=== PATIENT | female | born 1960 | race Caucasian/White ===

== ENCOUNTER 2023-06-01 17:00 | Outpatient (RCR) | payer OTHER, SELFPAY | END 2023-06-30 14:45 | disposition home or self-care (01) | LOC: HO.PT 17:00 | PROVIDERS: PCP Nurse Practitioner Adult Health; Visit Provider Student in an Organized Health Care Education/Training Program | DX: M54.50 Low back pain, unspecified (principal); G89.29 Other chronic pain | CPT/HCPCS: 97110; 97140; 97161; 97530 ==

== ENCOUNTER 2024-03-10 14:39 | Outpatient (AMB) | payer OTHER, SELFPAY ==
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
[2024-03-10 14:42] VITALS: PULSE 70; BMI 26.9
== END 2024-03-10 15:18 | disposition home or self-care (01) ==
PROVIDERS: PCP Nurse Practitioner Adult Health; Referring Provider Nurse Practitioner Adult Health; Visit Provider Registered Nurse Emergency
DX: M50.30 Other cervical disc degeneration, unspecified cervical region (principal); M47.816 Spondylosis without myelopathy or radiculopathy, lumbar region; M54.50 Low back pain, unspecified
CPT/HCPCS: 99204

== ENCOUNTER → 2024-03-10 14:39 | Outpatient (BNVA) | payer OTHER, SELFPAY | PROVIDERS: PCP Nurse Practitioner Adult Health; Referring Provider Nurse Practitioner Adult Health; Visit Provider Registered Nurse Emergency ==

== ENCOUNTER 2024-05-04 15:29 | Outpatient (REF) | payer OTHER, SELFPAY ==
--- NOTE | ~2024-05-04 | XR_ITS ---
RADIOGRAPH LUMBAR SPINE CLINICAL HISTORY: Back pain. COMPARISON: No relevant prior studies are available for comparison. TECHNIQUE: AP, lateral and oblique views were obtained. FINDINGS: Significant left apical lumbar scoliosis limiting evaluation of fractures by radiograph. No discrete severe compression deformity. No significant brianne or retrolisthesis. Grade 1 retrolisthesis of L2 on L3, possibly degenerative in nature. Severe multilevel intervertebral disc height loss and facet arthropathy leading to various degrees of neural foraminal osseous encroachment. No significant paraspinal soft tissue abnormality. XR/XR lumbar spine 4V min IMPRESSION: 1. Significant left apical lumbar scoliosis limiting evaluation of fractures. 2. Grade 1 retrolisthesis of L2 on L3, possibly degenerative in nature. 3. Severe lumbar spondylosis. In view of the degree of severe scoliosis, limiting the evaluation of the spine by radiograph, further evaluation with CT R MRI lumbar spine without IV contrast is recommended as clinically warranted. Electronically signed by: Deysi Hernandez MD 05/04/2024 05:00 PM EDT
== END 2024-05-04 15:30 | disposition home or self-care (01) ==
LOC: HO.XRAY 15:29
PROVIDERS: PCP Nurse Practitioner Adult Health; Visit Provider Registered Nurse Emergency
DX: M47.816 Spondylosis without myelopathy or radiculopathy, lumbar region (principal); M50.30 Other cervical disc degeneration, unspecified cervical region
CPT/HCPCS: 72110

== ENCOUNTER 2024-05-09 15:37 | Outpatient (AMB) | payer OTHER, SELFPAY ==
[2024-05-09 15:41] VITALS: BP 141/76; PULSE 66; O2SAT 98; BMI 26.4
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
== END 2024-05-09 15:56 | disposition home or self-care (01) ==
PROVIDERS: PCP Nurse Practitioner Adult Health; Visit Provider Registered Nurse Emergency
DX: M50.30 Other cervical disc degeneration, unspecified cervical region (principal); M47.816 Spondylosis without myelopathy or radiculopathy, lumbar region; M54.50 Low back pain, unspecified
CPT/HCPCS: 99213

== ENCOUNTER → 2024-05-09 15:37 | Outpatient (BNVA) | payer OTHER, SELFPAY | PROVIDERS: PCP Nurse Practitioner Adult Health; Visit Provider Registered Nurse Emergency ==

== ENCOUNTER 2024-05-25 16:00 | Outpatient (RCR) | payer OTHER, SELFPAY | END 2024-07-05 10:53 | disposition home or self-care (01) | LOC: HO.PT 16:00 | PROVIDERS: PCP Nurse Practitioner Adult Health; Visit Provider Nurse Practitioner Adult Health | DX: M54.50 Low back pain, unspecified (principal) | CPT/HCPCS: 97014; 97110; 97140; 97161; 97530 ==

== ENCOUNTER → 2024-05-30 16:18 | Outpatient (BNV) | payer OTHER, SELFPAY | PROVIDERS: PCP Nurse Practitioner Adult Health; Visit Provider Radiology Diagnostic Radiology | DX: M54.50 Low back pain, unspecified (principal) | CPT/HCPCS: 72148 ==

== ENCOUNTER 2024-05-30 16:20 | Outpatient (REF) | payer OTHER, SELFPAY ==
--- NOTE | ~2024-05-30 | MR_ITS ---
EXAMINATION: MR LUMBAR SPINE WITHOUT CONTRAST CLINICAL INFORMATION: Low back pain. Numbness and weakness, bilaterally. COMPARISON: None available. TECHNIQUE: MRI of the lumbar spine was obtained using routine sequences without contrast. FINDINGS: Left rib bearing vertebra labeled T12. Levoconvex rotoscoliosis apex at L2. Multilevel marginal osteophyte formation and disc desiccation. Bone marrow STIR signal in the endplates of T12-L1. Grade 1 anterolisthesis, L5-S1. Grade 1 retrolisthesis, T12-L1. Conus medullaris ends at inferior endplate of T12 with normal signal. T11-12: No compression upon neural elements. T12-L1: No central spinal canal stenosis. Bilateral neuroforamina narrowing secondary to scoliosis. L1-2: No central spinal canal stenosis. Bilateral neuroforamina narrowing secondary to scoliosis. L2-3: No central spinal canal stenosis. Bilateral neuroforamina narrowing secondary to scoliosis. L3-4: Broad-based disc bulging. Facet joint and ligamentum flavum hypertrophy. Reduced AP diameter of the central spinal canal. Bilateral neuroforamina narrowing secondary to scoliosis and degenerative changes. L4-5: Broad-based disc bulging. Facet joint and ligamentum flavum hypertrophy. Reduced AP diameter of the central spinal canal. Bilateral neuroforamina narrowing on a degenerative basis and scoliosis. L5-S1: No central spinal canal stenosis. Bilateral neuroforamina narrowing on a degenerative basis. Fatty atrophy of the lumbar muscles likely related to denervation. No prevertebral compartment hematoma, mass or fluid collection. MR/MR lumbar spine wo con IMPRESSION: Multilevel thoracolumbar spondylosis in the dextroconvex rotoscoliosis resulting in multilevel neural foramina narrowing and central spinal canal stenosis at L3-4. Electronically signed by: Vaughn Navas MD 06/27/2024 02:56 PM EDT
== END 2024-05-30 16:21 | disposition home or self-care (01) ==
LOC: HO.MRI 16:20
PROVIDERS: PCP Nurse Practitioner Adult Health; Visit Provider Registered Nurse Emergency
DX: M54.50 Low back pain, unspecified (principal)
CPT/HCPCS: 72148

== ENCOUNTER 2024-06-01 15:31 | Outpatient (REF) | payer OTHER, SELFPAY ==
--- NOTE | ~2024-06-01 | MM_ITS ---
EXAMINATION: MM SCREENING DIGITAL BREAST TOMOSYNTHESIS, BILATERAL CLINICAL INFORMATION: Screening. Asymptomatic. COMPARISON: Mammography: No prior imaging available for comparison. TECHNIQUE: Digital breast mammography with tomosynthesis is performed in both the craniocaudal and mediolateral oblique views along with computer-aided detection (CAD). FINDINGS: There are scattered areas of fibroglandular density (ACR BI-RADS breast composition Category b). Left: There are no significant masses, abnormal calcifications, or other abnormalities. Right: Focal asymmetry upper outer breast there is an adjacent marker clip. Priors from outside institution are not available at this time. No suspicious calcifications or other abnormal findings. MM/MM tomosynthesis screening BI IMPRESSION: Additional imaging is recommended ASSESSMENT: BI-RADS BI-RADS 0 - Incomplete: Needs additional Imaging. RECOMMENDATION: 1. Additional views of the right breast and/or prior reports when they are obtained an addendum can be issued. 2. Targeted ultrasound if warranted after review of the additional views. 3. Radiology department staff will contact the patient for additional imaging. Additional Imaging required This examination should not preclude the clinical evaluation of a suspicious palpable abnormality. This patient's information was entered into a reminder system with a target due date for their next mammogram. Electronically signed by: Nidhi Pitt DO 06/14/2024 12:23 PM EDT
== END 2024-06-01 15:32 | disposition home or self-care (01) ==
LOC: HO.MAMMO 15:31
PROVIDERS: PCP Nurse Practitioner Adult Health; Visit Provider Nurse Practitioner Adult Health
DX: Z12.31 Encounter for screening mammogram for malignant neoplasm of breast (principal)
CPT/HCPCS: 77063; 77067

== ENCOUNTER → 2024-06-01 16:00 | Outpatient (BNV) | payer OTHER, SELFPAY | PROVIDERS: PCP Nurse Practitioner Adult Health; Visit Provider Internal Medicine | DX: Z12.31 Encounter for screening mammogram for malignant neoplasm of breast (principal) | CPT/HCPCS: 77063; 77067 ==

== ENCOUNTER 2024-06-19 08:33 | Outpatient (REF) | payer OTHER, SELFPAY | END 2024-06-19 08:34 | disposition home or self-care (01) | LOC: HO.MAMMO 08:33 | PROVIDERS: PCP Nurse Practitioner Adult Health; Visit Provider Nurse Practitioner Adult Health | DX: Z13.89 Encounter for screening for other disorder (principal) ==

== ENCOUNTER 2024-07-05 13:04 | Outpatient (AMB) | payer OTHER, SELFPAY ==
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
== END 2024-07-05 13:19 | disposition home or self-care (01) ==
LOC: HO.PMC 13:04
PROVIDERS: PCP Nurse Practitioner Adult Health; Visit Provider Registered Nurse Emergency
DX: M54.2 Cervicalgia (principal); M50.30 Other cervical disc degeneration, unspecified cervical region; M54.50 Low back pain, unspecified; M47.816 Spondylosis without myelopathy or radiculopathy, lumbar region; M48.00 Spinal stenosis, site unspecified
CPT/HCPCS: 99213

== ENCOUNTER → 2024-07-05 13:04 | Outpatient (BNVA) | payer OTHER, SELFPAY | PROVIDERS: PCP Nurse Practitioner Adult Health; Visit Provider Registered Nurse Emergency ==

== ENCOUNTER 2024-09-12 15:12 | Outpatient (AMB) | payer OTHER, SELFPAY ==
[2024-09-12 15:26] VITALS: BP 112/72; PULSE 82; BMI 27.3
--- NOTE | 2024-09-12 15:26 | A.OFFVIS_ITS ---
Vital Signs 09/12/24 15:26 Height 5 ft 3 in Weight 154 lb 5.177 oz BMI 27.3 BP 112/72 Blood Pressure Location Rt brachial Position Sitting Pulse 82 Pulse Source Pulse Oximeter Intake Visit Reasons: Osteoporosis Intake Note: NEW Patient presents today to establish treatment for Osteoporosis: Binding Dyer Required: No Accompanied by: Self / Same As Patient Allergies No Known Allergies Allergy (Verified 09/12/24 15:27) Medication List - Last Reconciled 09/12/24 by Thang Alonzo MD cholecalciferol (vitamin D3) 50 mcg PO DAILY cream base no.105 (bulk) (Base W301 cream) SIG: apply pea-sized amount 3-5 times daily to painful areas as needed; Diclofenac 5%, Baclofen 5%, Cyclobenzaprine 2%, Gabapentin 6%, Bupivacaine 2%; topically ; duloxetine 20 mg PO BID 90 days lidocaine 5% 1 patch topical DAILY PRN methocarbamol 500 mg PO TID PRN multivitamin 1 tab PO DAILY HPI Comments Details: 64 YO Female is seen in consultation at the request of PCP for Osteoporosis. First diagnosed in [address] Anne at [facility]. Received 2 IV infusions of Reclast. Tried alendronate had GERD Tolerated treatment well without complication. history of pathologic fracture of T8 and aknles by twisting ankles or ONJ. Has several servings of dietary calcium per day in the form of yogurt, salmon ,ice cream . Takes Calcium supplement ? mg daily in divided doses of Citrcal . Takes 2000 IU of Vitamin D daily. Uses PPI, anticoagulant, antiepileptic or glucocorticoid medication. 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 UTD on dental cleanings and sees dentist every 6 months. No planned upcoming dental work or extractions. No tabacco use or EToh use DXA dated 2021 T-score in the femoral neck and -2.9 Labs: Secondary workup negative PFSH Medical History (Updated 09/12/24 @ 15:31 by Thang Alonzo MD) Osteoporosis Surgical History (Updated 09/12/24 @ 15:29 by NELLY Beckman) Hx of hernia repair Family History (Updated 09/12/24 @ 15:30 by NELLY Beckman) Father Pulmonary fibrosis Mother Heart disease Social History Alcohol intake: current Alcohol intake frequency: does not drink Patient Tobacco Use Status: Never used Tobacco Physical Exam Vital Signs: Last Vital Signs Pulse 82 09/12/24 15:26 BP 112/72 09/12/24 15:26 BMI result Body Mass Index 27.3 There are no Cushingoid features. Absence of blue sclera. Absence of kyphosis. Thyroid gland is of nl size and weighs 15 gms. There are no thyroid nodules palpated. Lungs CTA. Heart S1 S2 Reg R/R Abdominal exam benign. Muscle strength 5/5 . Examination of spine reveals absence of tenderness on palpation Assessment & Plan Assessment & Plan (1) Osteoporosis: Code(s): M81.0 - Age-related osteoporosis without current pathological fracture Category: Medical Plan: This is a 66-year-old white female with a history of osteoporosis and T8 compression fracture as well as ankle fractures with negative secondary workup. Patient received doses of Reclast. We will recheck DEXA bone density of hip and spine as well as urine NTX to determine whether a subsequent dose of Reclast these to be given. If bone density has declined and urine NTX is suppressed could consider use of anabolic therapy Orders: Orders Collagen Crosslinks NTX Today M81.0 - Age-related osteoporosis without current pathological fracture Vitamin D 25-OH Total Today M81.0 - Age-related osteoporosis without current pathological fracture XR DEXA axial skeleton Today M81.0 - Age-related osteoporosis without current pathological fracture Coding Level of Care Code New Pt Level 4 (17403) Diagnoses Osteoporosis M81.0
--- OUTSIDE RECORDS SUMMARY | 2024-09-12 17:41 | XMS_ITS | Continuity of Care Document ---
Author Organization [facility] Address [address] [place] [address] [address] [place] [phone] Phone Care Team Providers Care Plant Science Professor Name Role Phone Denny Owen MD, FACS, RVT Unavailable Unavailable Procedures Procedure Date Offic/outpt E&m Estab 5 Min Trial - Tele medicine Offic Cons New/estab Mod-hi 60 Duplex Scan-extrem Veins; Comp Advance Directives Directive Yes / No Effective Date File Name No Information Encounters Encounter Description Practice Location Reason(s) For Visit Diagnoses Date Provider Providers Copied on Encounter [facility], [address] [place] [address] Dr [address]Mike [place], [id number], tel:[phone] [facility] No Information 4 Brodie Nuñez. [address] [address], [facility] [place], [address], [place]. tel:[phone] Offic/outpt E&m Estab 5 Min Trial - Telemedicine [facility], [address] [place] [address] Dr [address]Suite Mike Palafox MD, [id number], tel:[phone] [facility] Chronic venous hypertension (idiopathic) with other complications of bilateral lower extremityLymph edema, not elsewhere classifiedHere ditary lymphedemaPrur itus, unspecified 4 John Paul ROJAS, NURIA, VIOLETTA Desir. [address] [address], Cristina [place]is [place], [id number] , [place]. tel:[phone] Referring Provider: Jerri Andrews NP, [address] [place], [place] [address], [address]. tel:[phone] Offic Cons New/estab Mod-hi 60 [facility], [address] [place] [address] Dr [address]Mike [place], [id number], [place] tel:[phone] [facility] Chronic venous hypertension (idiopathic) with other complications of bilateral lower extremityLocal ized edemaPain in right legPain in left legVenous insufficiency (chronic) (peripheral)Ly mphedema, not elsewhere classifiedPrur itus, unspecifiedHer editary lymphedema 3 John Paul ROJAS, NURIA, VIOLETTA Desir. [address] [place] [address], [place], [id number] , [place]. tel:[phone] Referring Provider: Jerri Andrews NP, [address] [employer] [address] [place] [address], [place], [address]. tel:[phone] [facility], [address] [place] [address] Dr [address], [place], [id number], [place] tel:[phone] [facility] Chronic venous hypertension (idiopathic) with other complications of bilateral lower extremity 3 John Paul ROJAS RVT, VIOLETTA Desir. [address] [place] [address], [address], [place]ina [place]is [place], [id number] , [place]. tel:[phone] Referring Provider: Jerri Andrews NP, [address] [employer] [address] [place], [place] [address]t [facility], [place], [address]. tel:[phone] Family History Family Member Type Diagnosis Age At Onset No Information Payers Payer name Insurance type Covered democrat ID Authorjocelyna blanquita(s) Blue Benefit Administrators of [facility] [id number] Social History Type Description Quantity Date Captured Comments Sex Female Smoking Status No Information Chief Complaint And Reason For Visit No Information Reason For Referral Reason For Referral No Information Plan Of Treatment Date Type Action Status Dec-28-2023 Goal Diet education completed Referral Ordered: Weight management: Referral to physician timeframe: 3 Months (related to Body mass index (BMI) 26.0-26.9, adult) ordered History Of Present Illness Encounter Date Complaint History Of Prese nt Illness No Information Functional Status Date Functional Assessmen t No Information Instructions Date Instruction Additional Infor aurora Patient education booklet given Related to Chronic venous hypertension (idiopathic) with other complications of bilateral lower extremity Pre and post instruc tions reviewed and provided Related to Chronic venous hypertension (idiopathic) with other complications of bilateral lower extremity Diet education Related to Body mass index (BMI) 26.0-26.9, adult Giving Encouragement to exercise Related to Body mass index (BMI) 26.0-26.9, adult Lifestyle education Related to B ty mass index (BMI) 26.0-26.9, adult Patient education booklet given Related to Chronic venous hypertension (idiopathic) with other complications of bilateral lower extremity Pre and post instruc tions reviewed and provided Related to Chronic venous hypertension (idiopathic) with other complications of bilateral lower extremity Assessments Type Assessment Date No Information Patient Care Teams Name Effective Dates (start - stop) Status Members No Information
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
== END 2024-09-12 16:19 | disposition home or self-care (01) ==
PROVIDERS: PCP Nurse Practitioner Adult Health; Visit Provider Internal Medicine Endocrinology, Diabetes & Metabolism
DX: M81.0 Age-related osteoporosis without current pathological fracture (principal)
CPT/HCPCS: 99204

== ENCOUNTER → 2024-09-12 15:12 | Outpatient (BNVA) | payer OTHER, SELFPAY | PROVIDERS: PCP Nurse Practitioner Adult Health; Visit Provider Internal Medicine Endocrinology, Diabetes & Metabolism ==

== ENCOUNTER 2024-09-13 11:57 | Outpatient (REF) | payer OTHER, SELFPAY ==
[2024-09-13 13:31] LABS: Vitamin D 25-OH Total 97.9 ng/mL (>30)
--- OUTSIDE RECORDS SUMMARY | 2024-09-13 14:17 | XMS_ITS ---
[facility] Name [facility] Unknown History of Medication Use Medication Directions Dispensed Refills Start Date End Date Stat tretinoin (RETIN-A) 0.1 % cream APPLY AT BEDTIME TO FACE FOR PHOTOAGING 12/04/2022 active tretinoin (RETIN-A) 0.1 % cream APPLY AT BEDTIME TO FACE FOR PHOTOAGING 12/04/2022 active esomeprazole (NexIUM) 40 mg capsule Take 40 mg by mouth. 12/04/2022 active zoledronic acid/mannitol-water (RECLAST IV) Infuse 5 mg into a venous catheter. 12/04/2022 active lamoTRIgine (LaMICtal) 25 mg tablet Take 25 mg by mouth. 12/04/2022 active Problems Problem Status Onset Date Problem Type Date of Resoluti on Source Acquired scoliosis active 2022-12-03 ProblemAct [facility] Uterine leiomyoma active 2022-12-03 ProblemAct [facility] Hypercholesterolemia active 2022-12-03 ProblemAct [facility] Compression fracture of T8 vertebra active 2022-12-03 ProblemAct [facility] Anxiety disorder active 2022-12-03 ProblemAct [facility] Osteoporosis active 2022-12-03 ProblemAct [facility]
--- OUTSIDE RECORDS SUMMARY | 2024-09-13 14:17 | XMS_ITS | Continuity of Care Document ---
Author Organization [facility] Address [address] [place] [address] Dr Mccain [address] [place] [address] Phone Care Team Providers Care Carroting Machine Operator Name Role Phone Denny Owen MD, FACS, RVT Unavailable Unavailable Procedures Procedure Date Offic/outpt E&m Estab 5 Min Trial - Tele medicine Offic Cons New/estab Mod-hi 60 Duplex Scan-extrem Veins; Comp Advance Directives Directive Yes / No Effective Date File Name No Information Encounters Encounter Description Practice Location Reason(s) For Visit Diagnoses Date Provider Providers Copied on Encounter [facility], [address] [place] [address] Dr Mccain 1000Suite 1000Mike [place], [id number], tel:[phone] [facility] No Information 4 Brodie Nuñez. [address] [address], [facility] [place], [address], [place]. tel:[phone] Offic/outpt E&m Estab 5 Min Trial - Telemedicine [facility], [address] [place] [address] Dr Mccain 1000Suite Mike Palafox MD, [id number], tel:[phone] [facility] Chronic venous hypertension (idiopathic) with other complications of bilateral lower extremityLymph edema, not elsewhere classifiedHere ditary lymphedemaPrur itus, unspecified 4 John Paul ROJAS, NURIA, VIOLETTA Desir. [address] [address], Cristina [place], [id number] , [place]. tel:[phone] Referring Provider: Jerri Andrews NP, [address] [place], [place] [address], [address]. tel:[phone] Offic Cons New/estab Mod-hi 60 [facility], [address] [place] [address] Dr Mccain 1000Suite 1000Mike [place], [id number], [place] tel:[phone] [facility] Chronic venous hypertension (idiopathic) with other complications of bilateral lower extremityLocal ized edemaPain in right legPain in left legVenous insufficiency (chronic) (peripheral)Ly mphedema, not elsewhere classifiedPrur itus, unspecifiedHer editary lymphedema 3 John Paul ROJAS, NURIA, VIOLETTA Desir. [address] [place] [address], [place], [id number] , [place]. tel:[phone] Referring Provider: Jerri Andrews NP, [address] [place] [address], [place], [address]. tel:[phone] [facility], [address] [place] [address] Dr Mccain [address], [place], [id number], [place] tel:[phone] [facility] Chronic venous hypertension (idiopathic) with other complications of bilateral lower extremity 3 John Paul ROJAS RVT, VIOELTTA Desir. [address] [place] [address], [address], [place], [id number] , [place]. tel:[phone] Referring Provider: Jerri Andrews NP, [address] [place] [employer] [address] [place], [place] [address]t [facility], [place], [address]. tel:[phone] Family History Family Member Type Diagnosis Age At Onset No Information Payers Payer name Insurance type Covered alliance party ID Authorjocelyna blanquita(s) Blue Benefit Administrators of [facility] [id number] Social History Type Description Quantity Date Captured [...]
== END 2024-09-13 11:58 | disposition home or self-care (01) ==
LOC: HO.10HDL 11:57
PROVIDERS: Visit Provider Internal Medicine Endocrinology, Diabetes & Metabolism
DX: M81.0 Age-related osteoporosis without current pathological fracture (principal)
CPT/HCPCS: 36415; 82306

== ENCOUNTER 2024-09-14 07:39 | Outpatient (REF) | payer OTHER, SELFPAY ==
--- OUTSIDE RECORDS SUMMARY | 2024-09-14 07:42 | XMS_ITS | Continuity of Care Document ---
Author Organization [facility] Address [address] [place] [address]- Care Team Providers Care Automotive Tire Worker Name Role Phone Saige Alvarez Primary Care Ronna maharaj Encounter [facility] [id number] Date(s): 07/19/24 - 08/18/[address] [address] Encounter Type: Triage Allergies, Adverse Reactions, Alerts [...] influenza virus vaccine, inactivated 2 04/30/15 Gi guur influenza virus vaccine, inactivated 3 05/14/14 Re [...] Maintenance, 11/15/23 6:32:00 PM EDT, [id number], 156.5, cm, 11/15/23 17:52:00 EDT, Height, 67, [...] Maintenance, 10/02/22 9:53:00 AM EST, EC Capsule, [facility]/pharmacy #[id number], Partial fill upon patient request [...] 1 Refills, Maintenance, 08/03/24 4:06:00 PMEST, Tablet, [facility]/pharmacy #[id number], Partial fill upon patient request [...] Refills, Maintenance, 02/22/23 10:12:00 AM EDT, Cream, [facility]/pharmacy #[id number], Partial fill upon patient request [...] Maintenance, 08/15/23 4:33:00 PM EST, Aerosol, [id number], Partial fill upon patient request if the [...] Active Scoliosis Confirmed Active Strabismus surgery Confirmed 1975 Active TBI (traumatic brain injury) Confirmed Active Uterine fibroid, heavy menses Confirmed Active 1T score at right femoral neck = -2.5 Social History Social History Type Response Smoking Status Never smoker entered on: 10/14/15 Sex Sex Representation Female (finding) Patient Care team information Care Team Personnel Name: Patricia Flores RN Position: [facility] RN Member Role: Primary Care Nurse Name: Saige Alvarez Position: [facility] PCO Associate Professional Member Role: PCP Address: [address] [place] [address]. [address] [place] [address]- Tele[employer]: Name: Kit Hendricks RN Position: [facility] RN Member Role: Primary Care Nurse Care Team Related Persons Name: ZABRINA PRIDE Name: BRIAN LOPEZ Insurance Providers Guarantor name: GIOVANNY PRIDE Health Plan Information #: 1 Payer: BLUE BENEFIT BBA PPO Member Number: NA Policy Number: NA Group Number: NA
--- OUTSIDE RECORDS SUMMARY | 2024-09-14 07:42 | XMS_ITS | Continuity of Care Document ---
Author Organization [facility] Address [address] [place] [address] Dr Mccain [address] [place] [phone] Phone Care Team Providers Care Tanning Drum Operator Name Role Phone Denny Owen MD, FACS, RVT Unavailable Unavailable Procedures Procedure Date Offic/outpt E&m Estab 5 Min Trial - Tele medicine Offic Cons New/estab Mod-hi 60 Duplex Scan-extrem Veins; Comp Advance Directives Directive Yes / No Effective Date File Name No Information Encounters Encounter Description Practice Location Reason(s) For Visit Diagnoses Date Provider Providers Copied on Encounter [facility], [address] [place] [address] Dr Mccain 1000Suite 1000Mike [place], [id number], tel:[phone] [facility] No Information 4 Brodie Nuñez. [address] [address], [facility], [address], [place]. tel:[phone] Offic/outpt E&m Estab 5 Min Trial - Telemedicine [facility], [address] [place] [address] Dr Mccain 1000Suite Mike Palafox MD, [id number], tel:[phone] [facility] Chronic venous hypertension (idiopathic) with other complications of bilateral lower extremityLymph edema, not elsewhere classifiedHere ditary lymphedemaPrur itus, unspecified 4 John Paul ROJAS, NURIA, VIOLETTA Desir. [address] [address], [place], [id number] , [place]. tel:[phone] Referring Provider: Jerri Andrews NP, [address] [place], [place] [address]J[place], [address]. tel:[phone] Offic Cons New/estab Mod-hi [facility], [address] [place] [address] Dr Mccain 1000Suite 1000Mike [place], [id number], [place] tel:[phone] [facility] Chronic venous hypertension (idiopathic) with other complications of bilateral lower extremityLocal ized edemaPain in right legPain in left legVenous insufficiency (chronic) (peripheral)Ly mphedema, not elsewhere classifiedPrur itus, unspecifiedHer editary lymphedema 3 John Paul ROJAS, NURIA, VIOLETTA Desir. [address] [place] [address], [place], [id number] , [place]. tel:[phone] Referring Provider: Jerri Andrews NP, [address] [employer] [address] [place] [address], [place], [address]. tel:[phone] [place] [facility], [address] [place] [address] Dr Mccain [address], [place], [id number], [place] tel:[phone] [facility] Chronic venous hypertension (idiopathic) with other complications of bilateral lower extremity 3 John Paul ROJAS RVT, VIOLETTA Desir. [address] [place] [address], [address], [place], [id number] , [place]. tel:[phone] Referring Provider: Jerri Andrews NP, [address] [place] [employer] [address] [place], [place] [address]t [facility], [place], [address]. tel:[phone] Family History Family Member Type Diagnosis Age At Onset No Information Payers Payer name Insurance type Covered alliance party ID Authorjocelyna blanquita(s) Blue Benefit Administrators of [facility] [id number] Social History Type Description Quantity Date Captured [...]
[2024-09-23 00:27] LABS: N-Telopeptide 23 (see note); NTXCreaRU 90 mg/dL (20-275)
== END 2024-09-14 07:40 | disposition home or self-care (01) ==
LOC: HO.10HDLNP 07:39
PROVIDERS: Visit Provider Internal Medicine Endocrinology, Diabetes & Metabolism
DX: M81.0 Age-related osteoporosis without current pathological fracture (principal)
CPT/HCPCS: 82523

== ENCOUNTER 2024-09-19 06:11 | Outpatient (REF) | payer OTHER, SELFPAY ==
--- NOTE | ~2024-09-19 | FL_ITS ---
EXAMINATION: FL GUIDANCE ONLY HISTORY: M48.00 - Spinal stenosis, site unspecified COMPARISON: None available. TECHNIQUE: Fluoroscopy time: 0.3 minutes. Cumulative Dose: 3.29 mGy. DAP: 0.0573 uGy-m2 (microgray-meter squared). Images: 4. FINDINGS: Images demonstrate injection of bilateral facet joints, likely at L3-4. FL/FL guidance in treatment room IMPRESSION: Fluoroscopy during procedure. Please see procedure report for additional information. Electronically signed by: Thang Jensen MD 09/19/2024 02:34 PM JOHNNY
--- OUTSIDE RECORDS SUMMARY | 2024-09-19 06:14 | XMS_ITS | Continuity of Care Document ---
Author Organization [facility] Address [address] [place] [address] Dr Mccain [address] [place] [phone] Phone Care Team Providers Care Surgical Scheduler Name Role Phone Denny Owen MD, FACS, RVT Unavailable Unavailable Procedures Procedure Date Offic/outpt E&m Estab 5 Min Trial - Tele medicine Offic Cons New/estab Mod-hi 60 Duplex Scan-extrem Veins; Comp Advance Directives Directive Yes / No Effective Date File Name No Information Encounters Encounter Description Practice Location Reason(s) For Visit Diagnoses Date Provider Providers Copied on Encounter [facility], [address] [place] [address] Dr Mccain 1000Suite 1000Mike [place], [id number], tel:[phone] [facility] No Information 4 Brodie Nuñez. [address] [address], [facility] [place], [address], [place]. tel:[phone] Offic/outpt E&m Estab 5 Min Trial - Telemedicine [facility], [address] [place] [address] Dr Mccain 1000Suite Mike Palafox MD, [id number], tel:[phone] [facility] Chronic venous hypertension (idiopathic) with other complications of bilateral lower extremityLymph edema, not elsewhere classifiedHere ditary lymphedemaPrur itus, unspecified 4 John Paul ROJAS, NURIA, VIOLETTA Desir. [address] [address], [place], [id number] , [place]. tel:[phone] Referring Provider: Jerri Andrews NP, [address] [place], [place] [address]J[place], [address]. tel:[phone] Offic Cons New/estab Mod-hi 60 [facility], [address] [place] [address] Dr Mccain 1000Suite 1000Mike [place], [id number], [place] tel:[phone] [facility] - [facility] Chronic venous hypertension (idiopathic) with other complications of bilateral lower extremityLocal ized edemaPain in right legPain in left legVenous insufficiency (chronic) (peripheral)Ly mphedema, not elsewhere classifiedPrur itus, unspecifiedHer editary lymphedema 3 John Paul ROJAS, NURIA, VIOLETTA Desir. [address] [place] [address], [place] a[place]is [place], [id number] , [place]. tel:[phone] Referring Provider: Jerri Andrews NP, [address] [employer] [address] [place] [address], [place], [address]. tel:[phone] [place] [facility], [address] [place] [address] Dr Mccain 1000[address], MD Mike, [id number], [place] tel:[phone] [facility] - [facility] Chronic venous hypertension (idiopathic) with other complications of bilateral lower extremity 3 John Paul ROJAS RVT, VIOLETTA Desir. [address] [place] [address], [address], [place] a[place]is [place], [id number] , [place]. tel:[phone] Referring Provider: Jerri Andrews NP, [address] [place] [employer] [address] [place], [place] [address]t [facility], [place], [address]. tel:[phone] Family History Family Member Type Diagnosis Age At Onset No Information Payers Payer name Insurance type Covered libertarian ID Authorjocelyna blanquita(s) Blue Benefit Administrators of [facility] [id number] Social History Type Description Quantity Date Captured [...] Information Instructions Date Instruction Additional Infor aurora Pre and post instruc tions reviewed and provided Related to Chronic venous hypertension (idiopathic) with other complications of bilateral lower extremity Patient education booklet given Related to Chronic venous hypertension (idiopathic) with other complications of bilateral lower extremity Pre and post instruc tions reviewed and provided Related to Chronic venous hypertension (idiopathic) with other complications of bilateral lower extremity Patient education booklet given Related to Chronic venous hypertension (idiopathic) with other complications of bilateral lower extremity Lifestyle education Related to B ty mass index (BMI) 26.0-26.9, adult Giving Encouragement to exercise Related to Body mass index (BMI) 26.0-26.9, adult Diet education Related to Body mass index (BMI) 26.0-26.9, adult Assessments Type Assessment Date No Information Patient Care Teams Name Effective Dates (start - stop) Status Members No Information
== END 2024-09-19 06:12 | disposition home or self-care (01) ==
LOC: CF 06:11
PROVIDERS: Visit Provider Anesthesiology
DX: M54.16 Radiculopathy, lumbar region (principal); M48.00 Spinal stenosis, site unspecified
CPT/HCPCS: 64483; 64484; J2003; J3301; Q9967

== ENCOUNTER 2024-09-19 07:17 | Outpatient (AMB) | payer OTHER, SELFPAY ==
--- OUTSIDE RECORDS SUMMARY | 2024-09-19 07:19 | XMS_ITS | Continuity of Care Document ---
Author Organization [facility] Address [address] [place] [address] Dr Mccain [address] [place] [phone] Phone Care Team Providers Care Supervisor Sewing Room Name Role Phone Denny Owen MD, FACS, RVT Unavailable Unavailable Procedures Procedure Date Offic/outpt E&m Estab 5 Min Trial - Tele medicine Offic Cons New/estab Mod-hi 60 Duplex Scan-extrem Veins; Comp Advance Directives Directive Yes / No Effective Date File Name No Information Encounters Encounter Description Practice Location Reason(s) For Visit Diagnoses Date Provider Providers Copied on Encounter [facility], [address] [place] [address] Dr Mccain 1000Suite 1000Mike [place], [id number], tel:[phone] [facility] No Information 4 Brodie Nuñez. [address] [address], [facility] [place], [address], [place]. tel:[phone] Offic/outpt E&m Estab 5 Min Trial - Telemedicine [facility], [address] [place] [address] Dr Mccain 1000Suite Mike Palafox MD, [id number], tel:[phone] [facility] Chronic venous hypertension (idiopathic) with other complications of bilateral lower extremityLymph edema, not elsewhere classifiedHere ditary lymphedemaPrur itus, unspecified 4 John Paul ROJAS, NURIA, VIOLETTA Desir. [address] [address], [place], [id number] , [place]. tel:[phone] Referring Provider: Jerri Andrews NP, [address] [place], [place] [address], [address]. tel:[phone] Offic Cons New/estab Mod-hi 60 [facility], [address] [place] [address] Dr Mccain 1000Suite 1000Mike [place], [id number], [place] tel:[phone] [facility] - [facility] Chronic venous hypertension (idiopathic) with other complications of bilateral lower extremityLocal ized edemaPain in right legPain in left legVenous insufficiency (chronic) (peripheral)Ly mphedema, not elsewhere classifiedPrur itus, unspecifiedHer editary lymphedema 3 John Paul ROJAS, NURIA, VIOLETTA Desir. [address] [place] [address], [place] a[place]is [place], [id number] , [place]. tel:[phone] Referring Provider: Jerri Andrews NP, [address] [employer] [address] [place] [address], [place], [address]. tel:[phone] [place] [facility], [address] [place] [address] Dr Mccain [address], MD Mike, [id number], [place] tel:[phone] [facility] - [facility] Chronic venous hypertension (idiopathic) with other complications of bilateral lower extremity 3 John Paul ROJAS RVT, VIOLETTA Desir. [address] [place] [address], [address], Crist[place] a[place]is [place], [id number] , [place]. tel:[phone] Referring Provider: Jerri Andrews NP, [address] [place] [employer] [address] [place], [place] [address]t [facility], [place], [address]. tel:[phone] Family History Family Member Type Diagnosis Age At Onset No Information Payers Payer name Insurance type Covered green party ID Authorjocelyna blanquita(s) Blue Benefit Administrators of [facility] [id number] Social History Type Description Quantity Date Captured [...]
[2024-09-19 07:33] VITALS: BP 110/78; PULSE 59; RESP 16; O2SAT 990
--- NOTE | 2024-09-19 07:33 | MHC.OFFVIS ---
Vital Signs 09/19/24 07:33 09/19/24 08:08 BP 110/78 146/77 H Blood Pressure Location Lt brachial Lt brachial Position Sitting Sitting Respiration 16 16 Pulse 59 62 Pulse Source Pulse Oximeter Pulse Oximeter Pulse Oximetry (%) 990 H 99 Oxygen Delivery Method Room Air Intake Visit Reasons: BILATERAL L3, L4 TFESI Allergies No Known Allergies Allergy (Verified 09/19/24 07:34) Medication List - Last Reconciled 09/19/24 by Brittny Hay LPN cholecalciferol (vitamin D3) 50 mcg PO DAILY cream base no.105 (bulk) (Base W301 cream) SIG: apply pea-sized amount 3-5 times daily to painful areas as needed; Diclofenac 5%, Baclofen 5%, Cyclobenzaprine 2%, Gabapentin 6%, Bupivacaine 2%; topically ; duloxetine 20 mg PO BID 90 days lidocaine 5% 1 patch topical DAILY PRN methocarbamol 500 mg PO TID PRN multivitamin 1 tab PO DAILY PFSH Medical History (Updated 09/19/24 @ 11:21 by Celestine Johnson MD) Osteoporosis Surgical History (Updated 09/12/24 @ 15:29 by NELLY Beckman) Hx of hernia repair Family History (Updated 09/12/24 @ 15:30 by NELLY Beckman) Father Pulmonary fibrosis Mother Heart disease Social History (Updated 09/12/24 @ 15:29 by NELLY Beckman) Alcohol intake: current Alcohol intake frequency: does not drink Patient Tobacco Use Status: Never used Tobacco Physical Exam Vital Signs: Last Vital Signs Pulse 62 09/19/24 08:08 Resp 16 09/19/24 08:08 BP 146/77 H 09/19/24 08:08 Pulse Ox 99 09/19/24 08:08 Oxygen Delivery Method Room Air 09/19/24 08:08 Assessment & Plan Assessment & Plan (1) Spinal stenosis: Code(s): M48.00 - Spinal stenosis, site unspecified Category: Medical (2) Radiculopathy of lumbar region: Code(s): M54.16 - Radiculopathy, lumbar region Category: Medical Plan Transforaminal bilateral L3- L4 epidural steroid injection . Informed consent was thoroughly explained to the patient before the procedure.? The patient came to the operating room.? She was positioned prone on operating table with a pillow under his abdomen.? Time-out was performed delineating correct site and side of the procedure, nature of the injection, name and date of of the patient. The lower back of the patient was prepped with ChloraPrep and draped with sterile utility towels.? C-arm was brought over the operating field and sq picture of L3 was demonstrated on the screen.? The right side was chosen as the 1st site of the injection.? Tilting machine ipsilateral to the right at the level of L3 the most prominent picture of the right pedicle was obtained on the screen.? 3 mm below the level of the lowest point of the pedicle projection to the skin small amount of lidocaine 1% 3-4 cc was injected to anesthetize the skin.? After that 5 in 22 gauge Quincke point needle was inserted through the skin wheal and was advanced toward the L3-L4 foramina on anterior posterior , lateral and oblique views intermittently.? When needle reached appropriate positioned injection of the contrast was performed delineating epidural and perineural spread of the contrast. No intravascular no intra neuro and no intrathecal spread of the contrast was noted. After that injection of the 3 cc of lidocaine 1% mixed with Kenalog 40 mg was performed into the needle. Upon completion of the right-sided injection injection in the left side L3-L4 was performed in mirroring fashion. Upon completion of the injections needles was removed Band-Aids were applied. Orders: Orders FL guidance in treatment room Today M48.00 - Spinal stenosis, site unspecified Coding Level of Care Code Procedure Only Diagnoses Spinal stenosis M48.00 Radiculopathy of lumbar region M54.16
[2024-09-19 08:08] VITALS: BP 146/77; PULSE 62; RESP 16; O2SAT 99
== END 2024-09-19 08:06 | disposition home or self-care (01) ==
LOC: HO.PMCPRC 07:17
PROVIDERS: PCP Nurse Practitioner Adult Health; Visit Provider Anesthesiology
DX: M48.00 Spinal stenosis, site unspecified (principal); M54.16 Radiculopathy, lumbar region
CPT/HCPCS: 64483; 64484

== ENCOUNTER 2024-10-11 09:03 | Outpatient (AMB) | payer OTHER, SELFPAY ==
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
[2024-10-11 09:10] VITALS: BP 127/75; PULSE 77; O2SAT 98
--- OUTSIDE RECORDS SUMMARY | 2024-10-11 09:57 | XMS_ITS | Clinical Summary ---
Author Organization [facility] Address [facility] [place] [address] Care Team Providers Care Manager Location Name Role Phone Pcp, No MD Primary Care Provider Unavailabl e Medications esomeprazole (NexIUM) 40 mg capsule Take 40 mg by mouth. 3 Active zoledronic acid/mannitol-w ater (RECLAST IV) Infuse 5 mg into a venous catheter. 2 Active tretinoin (RETIN-A) 0.1 % cream APPLY AT BEDTIME TO FACE FOR PHOTOAGING 3 Active Active Problems Problem Noted Date Diagnosed Date Anxiety disorder 12/03/2022 Acquired scoliosis 12/03/2022 Compression fracture of T8 vertebra 12/03/2022 Hypercholesterolemia 12/03/2022 Osteoporosis 12/03/2022 Uterine leiomyoma 12/03/2022 Family History Medical History Relation Comments Pulmonary fibrosis Father Dementia Mother Heart disease Mother Osteoporosis Mother Thyroid disease Mother Relation Status Comments Father Mother Social History Tobacco Use Types Packs/Day Years Used Date Smoking Tobacco: Never Smokeless Tobacco: Never Tobacco Cessation:Counseling Given: Not Answered Alcohol Use Standard Drinks/Week Comments Yes 0 (1 standard drink = 0.6 oz pur e alcohol) Comments Unknown Sex and Gender Information Value Date Recorded Sex Assigned at Not on file Legal Sex Female 1:56 AM EST Gender Identity Not on file Sexual Orientation Not on file Plan of Treatment Health Maintenance Due Date Last Done Comments Bone Density Screening 1958 Breast Cancer Screening 1958 CT Colonography 1958 Colonoscopy 1958 Colorectal Cancer Screening 1958 FIT-DNA (Cologuard) 1958 FIT 1958 FOBT 1958 Flex Sigmoidoscopy - 5y 1958 HIV Screening 1958 Hepatitis C Screening 1976 Zoster Vaccines (1 of 2) 2008 Pneumococcal Vaccine, 65+ Years (1 of 1 - PCV) 2023 COVID-19 Vaccine (4 - 2023-2 5 season) 2024 07/14/2021, 09/25/2020, 08/28/2020 Influenza Vaccine (#1) 2024 0, 08/11/2011, 08/26/2010 DTaP,Tdap,and Td Vaccines (2 - Td or Tdap) 01/04/2029 01/04/2019 HPV Vaccines Aged Out No longer eligi ble based on patient's age to complete this topic Hepatitis A Vaccines Aged Out No long er eligible based on patient's age to complete this topic MMR Vaccines Aged Out No longer eligi ble based on patient's age to complete this topic Meningococcal Vaccine Aged Out No senia alexia eligible based on patient's age to complete this topic Insurance ANTHEM - OUT OF STATE Care Teams Manager Location Relationship Specialty Start Date End Date Rylie Quinteros MD [address] [place] [address] PCP - General Internal Medicine 02/23/22
--- OUTSIDE RECORDS SUMMARY | 2024-10-11 09:57 | XMS_ITS | Clinical Summary ---
Author Organization [facility] Address [address] [place] [address] Care Team Providers Care Tools Developer Name Role Phone Unavailable Primary Care Provider Unavailabl e Social History Tobacco Use Types Packs/Day Years Used Date Smoking Tobacco: Never Assessed Sex and Gender Information Value Date Recorded Sex Assigned at Not on file Gender Identity Not on file Sexual Orientation Not on file Plan of Treatment Health Maintenance Due Date Last Done Comments Hepatitis C Virus Screening 1958 HIV Screening 1971 DTaP/Tdap/Td Vaccines (1 - Tdap) 1977 Pneumococcal Vaccines 50+ (1 of 1 - PCV) 2008 Zoster (Shingles) Vaccine (1 of 2) 2008 COVID-19 Vaccine ( - 2023-2 5 season) 2024 RSV Vaccine 60 years and old er and Patients (1 - 1-dose 75+ series) 2033 Hepatitis B Vaccines Aged Out No long er eligible based on patient's age to complete this topic
--- OUTSIDE RECORDS SUMMARY | 2024-10-11 09:57 | XMS_ITS | Continuity of Care Document ---
Author Organization [facility] Adult Address [address] [place] [address]- Care Team Providers Care Steel Fitter Name Role Phone Saige Alvarez Primary Care Ronna maharaj [id number] - 09/27/[address] [address]- Encounter Type: Triage Allergies, Adverse Reactions, Alerts [...] Beatty 4Result Comment: [09/11/2013] At employer Medications Albuterol (Eqv-ProAir HFA) 90 mcg/inh inhalation aerosol 1 puffs, Inhalation, 4 times a day, PRN NEEDED FOR WHEEZING, # 8.5 each, 5 Refills, Maintenance,09/12/24 1:42:00 PM EST, [facility] STORE 26946, 30, INHALE 1 PUFF BY MOUTH 4 TIMES A DAY NEEDED FOR WHEEZING, 156.5, cm, 08/28/24 16:52:00 EST, Height, 67, kg, 11/15/23 17:52:00 EDT, Dry Weight Start Date: 09/12/24 Status: Ordered Quantity: 8.5 Unit: each Repeat number: 1 calcium (as carbonate) 500 mg oral tablet, chewable 1 tablet = 500 mg, Daily, PRN Dyspepsia, 0 Refills, Maintenance, 05/02/20 8:08:00 AM EDT Start Date: 05/02/20 Status: Ordered Repeat number: 1 celecoxib 100 mg oral capsule 1 capsule, By Mouth, 2 times a day, PRN NEEDED FOR PAIN, # 60 capsule, 2 Refills, Maintenance, 11/15/23 6:32:00 PM EDT, [facility] STORE 40845, 156.5, cm, 11/15/23 17:52:00 EDT, Height, 67, kg, 11/15/23 17:52:00 EDT, Dry Weight Start Date: 11/15/23 Stop Date: 02/13/24 Status: Ordered Quantity: 60.0 Unit: capsule Repeat number: 1 diclofenac 1% topical gel = 2 Gm, Topically, 4 times a day, # 100 Gm, 3 Refills, Maintenance, 09/12/24 12:23:00 PM EST, [facility] STORE [address]5538, 30, APPLY 2 GM TO AFFECTED AREA 4 TIMES A DAY, 156.5, cm, 08/28/24 16:52:00 EST, Height, 67, kg, 11/15/23 17:52:00 EDT, Dry Weight Start Date: 09/12/24 Status: Ordered Quantity: 100.0 Unit: g Repeat number: 1 Nexium 40 mg oral enteric coated capsule 1 capsule = 40 mg, By Mouth, Daily, # 90 capsule, 10 Refills, Maintenance, 10/02/22 9:53:00 AM EST, [id number] Partial fill upon patient request if [...] 1 Refills, Maintenance, 08/03/24 4:06:00 PMEST, Tablet, [facility]/pharmacy #[id number], Partial fill upon patient request if [...] Refills, Maintenance, 02/22/23 10:12:00 AM EDT, Cream, [facility]/pharmacy #[id number], Partial fill upon patient request if the prescription is for a schedule II opioid drug., Use nightly for photoaging, 157.5, cm, 02/22/23 9:41:00 EDT, Height, 68.5, kg, 07/09/22 11:36:00 EST, Dry Weight Start Date: 02/22/23 Status: Ordered Quantity: 45.0 Unit: g Repeat number: 1 Vitamin D3 oral tablet By Mouth, Daily, [...] Primary Care Nurse Name: Saige Alvarez Position: [facility] Associate Professional Member Role: PCP Address: [address] [place] [address]. [address] [place] [address]- Telecom: Name: Kit Hendricks RN Position: S RN Member Role: Primary Care Nurse Care Team Related Persons Name: ZABRINA PRIDE Name: BRIAN LOPEZ Insurance Providers Guarantor name: GIOVANNY PRIDE Health Plan Information #: 1 Payer: BLUE BENEFIT [employer]BA PPO Member Number: NA Policy Number: NA Group Number: NA
--- OUTSIDE RECORDS SUMMARY | 2024-10-11 09:57 | XMS_ITS | Continuity of Care Document ---
Author Organization [facility] Address [address] [place] [address] [address] [place] [id number] Phone Care Team Providers Care Implementation Services Analyst Name Role Phone Denny Owen MD, FACS, RVT Unavailable Unavailable Procedures Procedure Date Offic/outpt E&m Estab 5 Min Trial - Tele medicine Offic Cons New/estab Mod-hi 60 Duplex Scan-extrem Veins; Comp Advance Directives Directive Yes / No Effective Date File Name No Information Encounters Encounter Description Practice Location Reason(s) For Visit Diagnoses Date Provider Providers Copied on Encounter [facility], [address] [place] [address] Dr [address] [address]Mike [place], [id number], tel:[phone] [facility] No Information 4 Brodie Nuñez. [address] [address], [facility] [place], [address], [place]. tel:[phone] Offic/outpt E&m Estab 5 Min Trial - Telemedicine [facility], [address] [place] [address] Dr [address]Suite [place], [id number], tel:[phone] [facility] Chronic venous hypertension (idiopathic) with other complications of bilateral lower extremityLymph edema, not elsewhere classifiedHere ditary lymphedemaPrur itus, unspecified 4 John Paul ROJAS, NURIA, VIOLETTA Desir. [address] [address], [place]ina [place], [id number] , [place]. tel:[phone] Referring Provider: Jerri Andrews NP, [address] [place], [place] [address], [address]. tel:[phone] Offic Cons New/estab Mod-hi 60 [facility], [address] [place] [address] Dr [address] [address]Mike [place], [id number], [place] tel:[phone] [facility] Chronic venous hypertension (idiopathic) with other complications of bilateral lower extremityLocal ized edemaPain in right legPain in left legVenous insufficiency (chronic) (peripheral)Ly mphedema, not elsewhere classifiedPrur itus, unspecifiedHer editary lymphedema 3 John Paul ROJAS, NURIA, VIOLETTA Desir. [address] [place] [address], [place], [id number] , [place]. tel:[phone] Referring Provider: Jerri Andrews NP, [address] [place] [address], [place], [address]. tel:[phone] [facility], [address] [place] [address] [address], [place], [id number], [place] tel:[phone] [facility] Chronic venous hypertension (idiopathic) with other complications of bilateral lower extremity 3 John Paul ROJAS RVT, VIOLETTA Desir. [address] [place] [address], [address], Cristina [place]is [place], [id number] , [place]. tel:[phone] Referring Provider: Jerri Andrews NP, [address] [facility] [address] [place], [place] [address]t [facility], [place], [address]. tel:[phone] Family History Family Member Type Diagnosis Age At Onset No Information Payers Payer name Insurance type Covered republican ID Authorjocelyna blanquita(s) Blue Benefit Administrators of [facility] [id number] Social History Type Description Quantity Date Captured [...]
== END 2024-10-11 09:17 | disposition home or self-care (01) ==
PROVIDERS: PCP Nurse Practitioner Adult Health; Visit Provider Registered Nurse Emergency
DX: M54.50 Low back pain, unspecified (principal); M50.30 Other cervical disc degeneration, unspecified cervical region; M47.816 Spondylosis without myelopathy or radiculopathy, lumbar region; M48.00 Spinal stenosis, site unspecified
CPT/HCPCS: 99213

== ENCOUNTER → 2024-10-11 09:03 | Outpatient (BNVA) | payer OTHER, SELFPAY | PROVIDERS: PCP Nurse Practitioner Adult Health; Visit Provider Registered Nurse Emergency ==

== ENCOUNTER → 2024-10-18 14:30 | Outpatient (BNV) | payer OTHER, SELFPAY | PROVIDERS: PCP Nurse Practitioner Adult Health; Visit Provider Radiology Diagnostic Radiology | DX: E28.39 Other primary ovarian failure (principal) | CPT/HCPCS: 77080 ==

== ENCOUNTER 2024-10-18 14:32 | Outpatient (REF) | payer OTHER, SELFPAY ==
--- OUTSIDE RECORDS SUMMARY | 2024-10-18 14:36 | XMS_ITS | Continuity of Care Document ---
Author Organization [facility] Adult Address [address] [place] [address]- Care Team Providers Care Comfort Filler Name Role Phone Saige Alvarez Primary Care Ronna maharaj Encounter [facility] Date(s): 09/11/24 - 10/11/[address] [address] Encounter Type: Triage Allergies, Adverse Reactions, Alerts [...] each, 5 Refills, Maintenance,09/12/24 1:42:00 PM EST, [facility] STORE 60686, 30, INHALE 1 PUFF BY MOUTH 4 [...] 2 Refills, Maintenance, 11/15/23 6:32:00 PM EDT, [facility] STORE 37709, 156.5, cm, 11/15/23 17:52:00 EDT, Height, 67, kg, 11/15/23 17:52:00 EDT, Dry Weight Start Date: 11/15/23 Stop Date: 02/13/24 Status: Ordered Quantity: 60.0 Unit: capsule Repeat number: 1 diclofenac 1% topical gel = 2 Gm, Topically, 4 times a day, # 100 Gm, 3 Refills, Maintenance, 09/12/24 12:23:00 PM EST, [facility] STORE 88024, 30, APPLY 2 GM TO AFFECTED AREA 4 TIMES A DAY, 156.5, cm, 08/28/24 16:52:00 EST, Height, 67, kg, 11/15/23 17:52:00 EDT, Dry Weight Start Date: 09/12/24 Status: Ordered Quantity: 100.0 Unit: g Repeat number: 1 Nexium 40 mg oral enteric coated capsule 1 capsule = 40 mg, By Mouth, Daily, # 90 capsule, 10 Refills, Maintenance, 10/02/22 9:53:00 AM EST, EC Capsule, [facility]/pharmacy #[id number], Partial fill upon patient request if the [...] 1 Refills, Maintenance, 08/03/24 4:06:00 PMEST, Tablet, [facility]/pharmacy #[id number], Partial fill upon patient request if the [...] Refills, Maintenance, 02/22/23 10:12:00 AM EDT, Cream, [facility]pharm[facility] #[id number], Partial fill upon patient request if the [...] Primary Care Nurse Name: Saige Alvarez Position: [facility] Associate Professional Member Role: PCP Address: [address] [place] [address]. [address] Telecom: Name: Kit Hendricks RN Position: S RN Member Role: Primary Care Nurse Care Team Related Persons Name: ZABRINA PRIDE Name: BRIAN LOPEZ Insurance Providers Guarantor name: GIOVANNY PRIDE Health Plan Information #: 1 Payer: BLUE BENEFIT [employer] PPO Member Number: NA Policy Number: NA Group Number: NA
--- OUTSIDE RECORDS SUMMARY | 2024-10-18 14:36 | XMS_ITS | Clinical Summary ---
Author Organization [facility] Address [facility] [place] [address] Care Team Providers Care Nursing Home Social Worker Name Role Phone Pcp, No MD Primary [...] ANTHEM - OUT OF STATE Care Teams Nursing Home Social Worker Relationship Specialty Start Date End Date Rylie Quinteros MD [address] [place] [address] PCP - General Internal Medicine 02/23/22
--- OUTSIDE RECORDS SUMMARY | 2024-10-18 14:36 | XMS_ITS | Clinical Summary ---
Author Organization [facility] Address [address] [place] [address] Care Team Providers Care Hazardous Materials Analyst Name Role Phone Unavailable Primary Care Provider [...]
--- OUTSIDE RECORDS SUMMARY | 2024-10-18 14:36 | XMS_ITS | Continuity of Care Document ---
Author Organization [facility] Address [address] [place] [address] Dr Mccain [address] [place] [address] Phone Care Team Providers Care Aircraft Sales Representative Name Role Phone Denny Owen MD, FACS, RVT Unavailable Unavailable Procedures Procedure Date Offic/outpt E&m Estab 5 Min Trial - Tele medicine Offic Cons New/estab Mod-hi 60 Duplex Scan-extrem Veins; Comp Advance Directives Directive Yes / No Effective Date File Name No Information Encounters Encounter Description Practice Location Reason(s) For Visit Diagnoses Date Provider Providers Copied on Encounter [facility], [address] [place] [address] Dr Mccain 1000[address]Mike [place], [id number], tel:[phone] [facility] No Information 4 Brodie Nuñez. [address] [address], [place], [address], [place]. tel:[phone] Offic/outpt E&m Estab 5 Min Trial - Telemedicine [facility], [address] [place] [address] Dr Mccain 1000Suite Mike Palafox MD, [id number], tel:[phone] [facility] Chronic venous hypertension (idiopathic) with other complications of bilateral lower extremityLymph edema, not elsewhere classifiedHere ditary lymphedemaPrur itus, unspecified 4 John Paul ROJAS, NURIA, VIOLETTA Desir. [address] [address], [place], [id number] , [place]. tel:[phone] Referring Provider: Jerri Andrews NP, [address] [place], [place] [address], [address]. tel:[phone] Offic Cons New/estab Mod-hi 60 [facility], [address] [place] [address] Dr Mccain [address]Mike [place], [id number], [place] tel:[phone] [facility] Chronic venous hypertension (idiopathic) with other complications of bilateral lower extremityLocal ized edemaPain in right legPain in left legVenous insufficiency (chronic) (peripheral)Ly mphedema, not elsewhere classifiedPrur itus, unspecifiedHer editary lymphedema 3 John Paul ROJAS, NURIA, VIOLETTA Desir. [address] [place] [address], [place], [id number] , [place]. tel:[phone] Referring Provider: Jerri Andrews NP, [address] [place] [address], [place], [address]. tel:[phone] [place], [address] [place] [address] Dr Mccain [address], [place], [id number], [place] tel:[phone] [facility] Chronic venous hypertension (idiopathic) with other complications of bilateral lower extremity 3 John Paul ROJAS RVT, VIOLETTA Desir. [address] [place] [address], [address], [place], [id number] , [place]. tel:[phone] Referring Provider: Jerri Andrews NP, [address] [facility] [address] [place], [place] [address]t [facility], [place], [address]. tel:[phone] Family History Family Member Type Diagnosis Age At Onset No Information Payers Payer name Insurance type Covered green party ID Authorjocelyna blanquita(s) [employer] of [facility] [id number] Social History Type Description Quantity Date Captured [...]
== END 2024-10-18 14:33 | disposition home or self-care (01) ==
LOC: HO.MAMMO 14:32
PROVIDERS: PCP Nurse Practitioner Adult Health; Visit Provider Internal Medicine Endocrinology, Diabetes & Metabolism
DX: M81.0 Age-related osteoporosis without current pathological fracture (principal)
CPT/HCPCS: 77080

== ENCOUNTER 2024-11-02 07:40 | Outpatient (REF) | payer OTHER, SELFPAY ==
--- OUTSIDE RECORDS SUMMARY | 2024-11-02 07:44 | XMS_ITS | Clinical Summary ---
Author Organization [facility] Address [facility] [place] [address] Care Team Providers Care Needle Loom Weaver Name Role Phone Pcp, No MD Primary [...] ANTHEM - OUT OF STATE Care Teams Needle Loom Weaver Relationship Specialty Start Date End Date Rylie Quinteros MD [address] [place] [address] PCP - General Internal Medicine 02/23/22
--- OUTSIDE RECORDS SUMMARY | 2024-11-02 07:44 | XMS_ITS | Clinical Summary ---
Author Organization [facility] Address [address] [place] [address] Care Team Providers Care Cattle Care Worker Name Role Phone Unavailable Primary Care Provider [...]
[2024-11-02 08:34] LABS: Alanine Aminotransferase 31 U/L (0-31); Aspartate Amino Transferase 27 U/L (5-31); Cholesterol 248 mg/dL (<200); HDL Cholesterol 60 mg/dL (>40); LDL Cholesterol Calculated 169 mg/dL (<100); Triglycerides 96 mg/dL (<150)
[2024-11-02 08:48] LABS: Vitamin D 25-OH Total 78.6 ng/mL (>30)
== END 2024-11-02 07:41 | disposition home or self-care (01) ==
LOC: HO.LAB 07:40
PROVIDERS: Visit Provider Nurse Practitioner Adult Health
DX: E78.5 Hyperlipidemia, unspecified (principal); M81.0 Age-related osteoporosis without current pathological fracture
CPT/HCPCS: 36415; 80061; 82306; 84450; 84460

== ENCOUNTER 2024-12-07 11:29 | Outpatient (REF) | payer OTHER, SELFPAY ==
--- NOTE | ~2024-12-07 | MM_ITS ---
EXAMINATION: DXA VERTEBRAL FRACTURE ASSESSMENT CLINICAL INFORMATION: Vertebral fracture assessment. Scoliosis. COMPARISON: None. TECHNIQUE: Your patient completed a vertebral fracture assessment using the R[employer]Wire DXA system (software version: 14.10) manufactured by [employer]. The following summarizes the results of our evaluation. LVA MORPHOMETRY RESULTS: Evaluation of the thoracolumbar spine from upper thoracic through lower lumbar spine was performed. Image quality is suboptimal.. There is significant levoscoliosis. There is no focal vertebral body compression demonstrated. The lowest Z score is -2.3 at L2 on lateral. The highest Z score is 14.6 at T6 on lateral. MM/XR DEXA vertrebral fracture IMPRESSION: Moderate levoscoliosis of lumbar spine restricts fractures assessment of lumbar spine. For better evaluation. Consider correlation with DEXA scan and CT lumbar spine without contrast RECOMMENDATIONS: All patients should ensure an adequate intake of dietary calcium (1200 mg/d) and vitamin D (400-800 IU/d). Effective therapies are now available in the form of bisphosphonates, (alendronate, ibandronate, risedronate, zoledronic acid), antiresorptive agents (calcitonin, estrogen + progesterone and raloxifene) and anabolic agent (teriparatide). These therapies may reduce vertebral, hip and other fractures by up to 50%. FOLLOW UP: People with diagnosed cases of osteoporosis, high risk for fracture, or current vertebral fractures should have regular bone mineral density tests. The frequency of followup vertebral fracture assessment tests should be determined based on clinical circumstances. Often times, testing frequency will be based on rapidly progressing disease, or the addition or elimination of therapy to treat the disease. Electronically signed by: Juan Rowell MD 12/08/2024 03:58 PM EDT
--- OUTSIDE RECORDS SUMMARY | 2024-12-07 14:00 | XMS_ITS | Clinical Summary ---
Author Organization [facility] Address [address] [place] [address] Care Team Providers Care Book Sorter Name Role Phone Unavailable Primary Care Provider [...]
--- OUTSIDE RECORDS SUMMARY | 2024-12-07 14:00 | XMS_ITS | Clinical Summary ---
Author Organization [facility] Address [facility] [place] [address] Care Team Providers Care Food Safety Field Specialist Name Role Phone Pcp, No MD Primary [...] HIV Screening 1958 Hepatitis C Screening 1976 Pneumococcal Vaccine, 50+ Years (1 of 1 - PCV) 2008 Zoster Vaccines (1 of 2) 2008 COVID-19 Vaccine (4 - 2023-2 5 season) 2024 07/14/2021, 09/25/2020, 08/28/2020 Influenza Vaccine (Season Ended) 2025 06/13/2020, 08/11/2011, 08/26/2010 DTaP,Tdap,and Td Vaccines (2 - [...] ANTHEM - OUT OF STATE Care Teams Food Safety Field Specialist Relationship Specialty Start Date End Date Rylie Quinteros MD [address] [place] [address] PCP - General Internal Medicine 02/23/22
== END 2024-12-07 11:30 | disposition home or self-care (01) ==
LOC: HO.MAMMO 11:29
PROVIDERS: PCP Nurse Practitioner Adult Health; Visit Provider Internal Medicine Endocrinology, Diabetes & Metabolism
DX: M81.0 Age-related osteoporosis without current pathological fracture (principal)
CPT/HCPCS: 77086

== ENCOUNTER → 2024-12-07 11:30 | Outpatient (BNV) | payer OTHER, SELFPAY | PROVIDERS: PCP Nurse Practitioner Adult Health; Visit Provider Radiology Diagnostic Radiology | DX: M41.9 Scoliosis, unspecified (principal) | CPT/HCPCS: 77086 ==

== ENCOUNTER 2024-12-20 15:28 | Outpatient (AMB) | payer OTHER, SELFPAY ==
--- NOTE | 2024-12-20 15:31 | MHC.OFFVIS ---
Vital Signs 12/20/24 15:32 Height 5 ft 3 in Weight 158 lb 8.198 oz BMI 28.1 BP 124/80 Blood Pressure Location Lt brachial Position Sitting Pulse 96 Pulse Source Pulse Oximeter Pulse Oximetry (%) 98 Oxygen Delivery Method Room Air Intake Visit Reasons: f/u osteoporosis Intake Note: Patient present today for Osteoporosis offiice visit. Meter And Service Line Inspector Required: No Accompanied by: Self / Same As Patient Allergies No Known Allergies Allergy (Verified 12/20/24 15:35) HPI Comments Details: 64 YO Female is seen in consultation at the request of PCP for Osteoporosis. First diagnosed in 2010 [address] Anne at [facility]. Received 2 IV infusions of Reclast. Tried alendronate had GERD Tolerated treatment well without complication. history of pathologic fracture of T8 and aknles by twisting ankles or ONJ. Has several servings of dietary calcium per day in the form of yogurt, salmon ,ice cream . Takes Calcium supplement ? mg daily in divided doses of Citrcal . Takes 2000 IU of Vitamin D daily. Uses PPI, anticoagulant, antiepileptic or glucocorticoid medication. 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 UTD on dental cleanings and sees dentist every 6 months. No planned upcoming dental work or extractions. No tabacco use or EToh use DXA dated 2021 T-score in the femoral neck and -2.9 Labs: Secondary workup negative. Recent bone density was stable with T-score of-2.7 in the femoral neck. NTX is suppressed The patient is a 64-year-old female presenting for osteoporosis management and stability assessment. She has been receiving treatment for osteoporosis with calcium and vitamin D supplementation and two doses of Reclast. Her dual-energy X-ray absorptiometry (DEXA) scans have shown stabilization in her bone density, with a slight improvement in the hip area, suggesting current therapy is effective. She has experienced no new fractures since her last visit. Past medical history includes a T8 vertebral fracture and an ankle fracture, with no recent occurrences. Her commitment to a regular weight-bearing exercise regimen has been beneficial for her bone health. Current plans involve monitoring and reevaluation of bone turnover markers in a year?s time, with no immediate need for additional Reclast treatment due to stable results. [facility] Medical History (Updated 09/19/24 @ 11:21 by Celestine Johnson MD) Osteoporosis Surgical History Hx of hernia repair Family History Father Pulmonary fibrosis Mother Heart disease Social History Alcohol intake: current Alcohol intake frequency: does not drink Patient Tobacco Use Status: Never used Tobacco Physical Exam Vital Signs: Last Vital Signs Pulse 96 12/20/24 15:32 BP 124/80 12/20/24 15:32 Pulse Ox 98 12/20/24 15:32 Oxygen Delivery Method Room Air 12/20/24 15:32 BMI result Body Mass Index 28.1 Assessment & Plan Assessment & Plan (1) Osteoporosis: Code(s): M81.0 - Age-related osteoporosis without current pathological fracture Category: Medical Plan: This is a 66-year-old white female with a history of osteoporosis and T8 compression fracture as well as ankle fractures with negative secondary workup. Patient received 2 doses of Reclast. Recent DEXA stable at NTX is suppressed Plan is to continue the calcium and vitamin-D supplementation hold off on giving pharmacologic therapy. We will recheck NTX in 1 year's time 1. Osteoporosis The patient's osteoporosis management with calcium and vitamin D, alongside Reclast, is stable, with no new fractures reported and bone density possibly improving. Given her low fracture risk, continued monitoring with bone turnover markers in a year is planned, with no additional Reclast doses deemed necessary at this time. I discussed with the patient the current management and stability of her osteoporosis, highlighting the successful maintenance of her bone density with the current regimen of calcium, vitamin D, and two doses of Reclast. We covered the conservative approach regarding further Reclast administration due to her stable condition and low fracture risk. I explained the plan to monitor her bone turnover markers in a year and reassured her regarding her current low risk of fractures. Patient expressed understanding and agreement with the treatment strategy. - Continue taking calcium and vitamin D as directed. - Maintain regular weight-bearing exercises, such as using the elliptical machine. - Be cautious to prevent falls, ensure stairways are well-lit, and remove any floor obstacles. - Return for a follow-up appointment in one year, with bone turnover marker testing scheduled four weeks prior. - Contact the office if any new fractures occur or if there are concerns. The patient had an opportunity to ask questions regarding treatment plan. The patient expressed understanding and agreement with the above treatment plan. Patient was informed and verbally consented to the use of an ambient scribe for clinic note documentation during this visit. Orders: Orders Collagen Crosslinks NTX 1 Year M81.0 - Age-related osteoporosis without current pathological fracture Coding Level of Care Code Est Pt Level 3 (19816) Diagnoses Osteoporosis M81.0
[2024-12-20 15:32] VITALS: BP 124/80; PULSE 96; O2SAT 98; BMI 28.1
--- OUTSIDE RECORDS SUMMARY | 2024-12-20 18:09 | XMS_ITS | Clinical Summary ---
Author Organization [facility] Address [facility] [place] [address] Care Team Providers Care Director Of Cardiac Cath Lab Name Role Phone Pcp, No MD Primary [...] ANTHEM - OUT OF STATE Care Teams Director Of Cardiac Cath Lab Relationship Specialty Start Date End Date Rylie Quinteros MD [address] [place] [address] PCP - General Internal Medicine 02/23/22
--- OUTSIDE RECORDS SUMMARY | 2024-12-20 18:09 | XMS_ITS | Clinical Summary ---
Author Organization [facility] Address [address] [place] [address] Care Team Providers Care Air Brake Adjuster Name Role Phone Unavailable Primary Care Provider Unavailabl e Social History Tobacco Use Types Packs/Day Years Used Date Smoking Tobacco: Never Assessed Comments Unknown Sex and Gender Information Value Date Recorded Sex Assigned at Not on file Legal Sex Female 3:10 PM EDT Gender Identity Not on file Sexual Orientation Not on file Plan of Treatment Health Maintenance Due Date Last Done Comments Hepatitis C Virus Screening 1960 DTaP/Tdap/Td Vaccines (1 - Tdap) 1977 Pneumococcal [...]
--- OUTSIDE RECORDS SUMMARY | 2024-12-20 18:09 | XMS_ITS | Continuity of Care Document ---
Author Organization [facility] Address [address] [place] [address] Phone Care Team Providers Care Wool Hat Forming Machine Tender Name Role Phone John Paul ROJAS, VIOLETTA [...] Providers Copied on Encounter [facility], [address] [place] [address] [address], [place], [id number], [place] tel:[phone] [facility] [place] Nevus, non-neoplastic John Paul ROJAS, VIOLETTA QUIÑONES. [address] [facility], [address], [place], [id number] , [place]. tel:[phone] Referring Provider: Jerri Andrews NP, [address] [facility] [place], [address]. tel:[phone] Offic/outpt E&m Estab 5 Min Trial - [facility]medicine [facility], [address] [place] [address] Dr Mccain 1000[facility] 1000Mike [place], [id number], [place] tel:[phone] [facility] hypertension (idiopathic) with other complications of bilateral lower extremityLymph edema, not elsewhere classifiedHere ditary lymphedemaPrur itus, unspecified Oct- 4 John Paul RJOAS RVT, RPVI Robert. [address] [address], [place], [id number] , [place]. tel:[phone] Referring Provider: Jerri Andrews NP, [address] [place], [address]. tel:[phone] Offic Cons New/estab Mod-hi 60 [facility], [address] [place] [address] [address] [address] [place], [id number], [place] tel:[phone] [facility] venous hypertension (idiopathic) with other complications of bilateral lower extremityLocal ized edemaPain in right legPain in left legVenous insufficiency (chronic) (peripheral)Ly mphedema, not elsewhere classifiedPrur itus, unspecifiedHer editary lymphedema Jul- 3 John Paul ROJAS RVT, RPVI Robert. [address] [address], [place], [id number] , [place]. tel:[phone] Referring Provider: Jerri Andrews NP, [address] [place], [address]. tel:[phone] [facility] MD T[facility], [address] [place] [address] Dr Mccain [address] 1000Mike [place], [id number], [place] tel:[phone] [facility] venous hypertension (idiopathic) with other complications of bilateral lower extremity 3 John Paul ROJAS RVT, RPVI Robert. [address] [facility], [address], [place], [id number] , [place]. tel:[phone] Referring Provider: Jerri Andrews HOT SEALING MACHINE OPERATOR, [address] [facility] [address] [facility] [place], [address]. tel:[phone] Family History Family Member Type Diagnosis Age At Onset No Information Payers Payer name Insurance type Covered green party ID Authoriza tion(s) Self Pay 09 [...]
== END 2024-12-20 15:43 | disposition home or self-care (01) ==
LOC: HO.ENCR 15:29
PROVIDERS: PCP Nurse Practitioner Adult Health; Visit Provider Internal Medicine Endocrinology, Diabetes & Metabolism
DX: M81.0 Age-related osteoporosis without current pathological fracture (principal)
CPT/HCPCS: 99213

== ENCOUNTER 2025-02-20 06:29 | Outpatient (REF) | payer OTHER, SELFPAY ==
--- NOTE | ~2025-02-20 | FL_ITS ---
EXAMINATION: XR FLUOROSCOPY WITH IMAGES CLINICAL INFORMATION: Lumbar pain management injection COMPARISON: None available. TECHNIQUE: Fluoroscopy provided to: Dr. Johnson Fluoroscopy time: 0.6 minutes DAP: 0.0912 mGycm2 Images: 4 FINDINGS: 4 images obtained during lumbar pain management injection. Please refer to the full procedural report for details. FL/FL guidance in treatment room IMPRESSION: Fluoroscopic guidance. Electronically signed by: Gennaro Rucker MD 02/20/2025 03:25 PM EDT
== END 2025-02-20 06:30 | disposition home or self-care (01) ==
LOC: CF 06:29
PROVIDERS: Visit Provider Anesthesiology
DX: M47.816 Spondylosis without myelopathy or radiculopathy, lumbar region (principal); M54.50 Low back pain, unspecified
CPT/HCPCS: 64493; 64494; J2003; J2795; Q9967

== ENCOUNTER 2025-02-20 14:40 | Outpatient (AMB) | payer OTHER, SELFPAY ==
[2025-02-20 14:46] VITALS: BP 118/76; PULSE 85; RESP 18; O2SAT 100; BMI 28.0
--- NOTE | 2025-02-20 14:46 | A.OFFVIS_ITS ---
Vital Signs 02/20/25 14:46 02/20/25 15:11 Height 5 ft 3 in 5 ft 3 in Weight 158 lb 158 lb BMI 28.0 28.0 BP 118/76 117/66 Blood Pressure Location Lt brachial Lt brachial Position Sitting Sitting Respiration 18 18 Pulse 85 80 Pulse Source Pulse Oximeter Pulse Oximeter Pulse Oximetry (%) 100 100 Oxygen Delivery Method Room Air Room Air Intake Visit Reasons: BILATERAL DIAGNOSTIC L3 L4 DR L5 MBB Management Internship Required: No Allergies No Known Allergies Allergy (Verified 02/20/25 14:47) PFSH Medical History (Updated 02/20/25 @ 16:15 by Celestine Johnson MD) Osteoporosis Surgical History Hx of hernia repair Family History Father Pulmonary fibrosis Mother Heart disease Social History Alcohol intake: current Alcohol intake frequency: does not drink Patient Tobacco Use Status: Never used Tobacco Physical Exam Vital Signs: Last Vital Signs Pulse 80 02/20/25 15:11 Resp 18 02/20/25 15:11 BP 117/66 02/20/25 15:11 Pulse Ox 100 02/20/25 15:11 Oxygen Delivery Method Room Air 02/20/25 15:11 BMI result Body Mass Index 28.0 Assessment & Plan Assessment & Plan (1) Lower back pain: Code(s): M54.50 - Low back pain, unspecified Category: Medical (2) Lumbar spondylosis: Code(s): M47.816 - Spondylosis without myelopathy or radiculopathy, lumbar region Category: Medical (3) Spondylosis of lumbar region without myelopathy or radiculopathy: Code(s): M47.816 - Spondylosis without myelopathy or radiculopathy, lumbar region Category: Medical Plan Diagnostic medial branch block L3,L4 dorsal ramus L5 bilateral.? ? ?Informed consent was explained to the patient. All questions were explained and? answered.? The patient was taken inside the operating room where she was positioned prone on the operating table. Time-out was performed delineating correct site, side, the nature of the procedure, patient's allergy, . All operating room staff was participating in OR time-out procedure. ? ? The lower back was prepped with ChloraPrep and draped with sterile towels.? C- arm was brought over the operating field and sq picture of L4-, L5 vertebra and S1 AREA were delineated on the screen.? Advanced scoliotic changes and advanced spondylosis were noted on the images. Point of interest were delineated as confluence of superior articular process of L4 and L5 vertebra bilaterally with corresponding transverse processes as well as confluence of the sacral alae bilaterally with superior articular process of S1.? The projection of the point of interest to the skin were injected with the small amount of local anesthetic lidocaine 2% mixed with ropivacaine 0.5% 1-1 approcimately 1 cc.? After that 22 gauge 3.5 inch spinal needle was driven sequentially to the points of interest in tunnel vision fashion. After needles gently contacted the bone at the point of interests the needle was injected with small amount of the contrast.? The injection of the contrast did not demonstrate any intravascular or intrathecal spread of the contrast.? After that injection of the? ropivacaine 0.5%-1cc was performed at each needle location. ?after that the needles were removed and Bandaids were applied. ? Orders: Orders FL guidance in treatment room Today M47.816 - Spondylosis without myelopathy or radiculopathy, lumbar region Patient Instructions: The patient reported that her pain at the end of the day is very severe. We discussed the situation at hands. The decision was made to prescribe a short course of tramadol for the patient so she could tolerate the temporary time between now and potential definitive treatment with less pain. Coding Level of Care Code Procedure Only Diagnoses Lower back pain M54.50 Lumbar spondylosis M47.816 Spondylosis of lumbar region without myelopathy or radiculopathy M47.816
[2025-02-20 15:11] VITALS: BP 117/66; PULSE 80; RESP 18; O2SAT 100; BMI 28.0
--- OUTSIDE RECORDS SUMMARY | 2025-02-20 17:52 | XMS_ITS | Clinical Summary ---
Author Organization [facility] Address [address] [place] [address] Care Team Providers Care Manager Hotel Name Role Phone Unavailable Primary Care Provider [...]
== END 2025-02-20 15:20 | disposition home or self-care (01) ==
LOC: HO.PMCPRC 14:40
PROVIDERS: PCP Nurse Practitioner Adult Health; Visit Provider Anesthesiology
DX: M47.816 Spondylosis without myelopathy or radiculopathy, lumbar region (principal); M54.50 Low back pain, unspecified
CPT/HCPCS: 64493; 64494

== ENCOUNTER 2025-04-26 08:54 | Outpatient (AMB) | payer OTHER, SELFPAY ==
--- OUTSIDE RECORDS SUMMARY | 2024-10-31 11:30 | XMS_ITS | Continuity of Care Document ---
Author Organization [facility] Address [address] [place] [address] Phone Care Team Providers Care Sales And Service Change Leader Name Role Phone John Paul ROJAS, VIOLETTA QUIÑONES Robert Unavailable U navailable Allergies, Adverse Reactions, Alerts Substance Reaction Status Criticality No Known Allergies Active No Inform ation Procedures Procedure Date No Charge For Services Offic/outpt E&m Estab 5 Min Trial - Tele medicine Offic Cons New/estab Mod-hi 60 23 Duplex Scan-extrem Veins; Comp Advance Directives Directive Yes / No Effective Date File Name Other Directive No N/A N/A WARNING:The information contained in this section is historical and is provided for information only and does not constitute a legal document or any assurance that the information is still accurate. Please verify the information with the harry of the legal document before using it for clinical purposes. Encounters Encounter Description Practice Location Reason(s) For Visit Diagnoses Date Provider Providers Copied on Encounter [facility], [address] [place] [address] [address], [place], [id number], [place] tel:[phone] [facility] [place] [facility] [place] Nevus, non-neoplastic John Paul ROJAS, VIOLETTA QUIÑONES. [address] [facility], [address], [place], [id number] , [place]. tel:[phone] Referring Provider: Jerri Andrews NP, [address] [facility] [place], [address]. tel:[phone] Offic/outpt E&m Estab 5 Min Trial - Telemedicine [facility], [address] [place] [address] Dr Mccain 1000[facility] 1000Mike [place], [id number], [place] tel:[phone] [facility] hypertension (idiopathic) with other complications of bilateral lower extremityLymph edema, not elsewhere classifiedHere ditary lymphedemaPrur itus, unspecified Oct- 4 John Paul ROJAS RVT, RPVI Robert. [address] [address], [place], [id number] , [place]. tel:[phone] Referring Provider: Jerri Andrews NP, [address] [place], [address]. tel:[phone] Offic Cons New/estab Mod-hi 60 [facility], [address] [place] [address] Dr [address] [address] [place], [id number], [place] tel:[phone] [facility] Chronic venous hypertension (idiopathic) with other complications of bilateral lower extremityLocal ized edemaPain in right legPain in left legVenous insufficiency (chronic) (peripheral)Ly mphedema, not elsewhere classifiedPrur itus, unspecifiedHer editary lymphedema Jul- 3 John Paul ROJAS RVT, RPVI Robert. [address] [address], [place], [id number] , [place]. tel:[phone] Referring Provider: Jerri Andrews NP, [employer] [address] [place], [address]. tel:[phone] [facility] T[facility], [address] [place] [address] Dr Mccain 1000[address] 1000Mike [place], [id number], [place] tel:[phone] [facility] Chronic venous hypertension (idiopathic) with other complications of bilateral lower extremity 3 John Paul ROJAS RVT, RPVI Robert. [address] [facility], [address], [place], [id number] , [place]. tel:[phone] Referring Provider: Jerri Andrews PLASTICS FABRICATOR OR WELDER, [address] [facility] [address] [facility] [place], [address]. tel:[phone] Family History Family Member Type Diagnosis Age At Onset No Information Payers Payer name Insurance type Covered constitution party ID Authoriza tion(s) Self Pay 09 Social History Type Description Quantity Date Captured Comments Alcohol Use Details Unknown Caffeine Use Details Unknown Tobacco Use Status Never smoked tobacco 2024 Smoking Status Never smoker Non-Smoking Tobacco Use Details : No Details Available : No Details Available Sex Female Chief Complaint And Reason For Visit No Information Reason For Referral Reason For Referral No Information Plan Of Treatment Date Type Action Status Goal Tobacco cessation counseling completed Goal Diet education completed Referral Ordered: Weight management: Referral to physician timeframe: 3 Months (related to Body mass index (BMI) 26.0-26.9, adult) ordered History Of Present Illness Encounter Date Complaint History Of Prese nt Illness No Information Functional Status Date Functional Assessmen t No Information Instructions Date Instruction Additional Infor mation Patient education booklet given Related to Chronic [...] bilateral lower extremity Assessments Type Assessment Date assessment Nevus, non-neoplastic Patient Care Teams Name Effective Dates (start - stop) Status Members No Information
[2025-04-26 09:02] VITALS: BP 128/79; PULSE 62; RESP 18; O2SAT 99
--- NOTE | 2025-04-26 09:02 | MHC.OFFVIS ---
Vital Signs 04/26/25 09:02 Weight 136 lb BP 128/79 Blood Pressure Location Lt brachial Position Sitting Respiration 18 Pulse 62 Pulse Source Pulse Oximeter Pulse Oximetry (%) 99 Intake Visit Reasons: Follow Up [employer] Required: No Allergies No Known Allergies Allergy (Verified 04/26/25 09:01) HPI Comments Details: Cari is in my office today after diagnostic medial branch block which was performed in January. She reported 100% pain relief for 1st week after the injection, she reports excellent mobility, excellent activities of daily living, excellent social interactions. I offered her sprint PNS and I offered her radiofrequency ablation of the medial branches. Because of her work obligations patient's chose to go for radiofrequency ablation. I will schedule it for minimal sedation in the operating room. Next appointment will be scheduled after the procedure. Prior: Patient presents back to the office today for follow-up and review recent x-ray She has been going to physical therapy which worsened her pain Has been taking ibuprofen and Tylenol without improvement. Muscle relaxers provide minimal relief. She is waiting for compound cream from the pharmacy which should be coming in the mail. Prescribed Wellbutrin by her PCP But she did not tolerate it. She states it caused her to have side effects but also did not help her pain. She reports intermittent radiation of the pain down both lower extremities, endorses some intermittent weakness of the lower extremities as well. Denies red flag symptoms including new loss of bowel, bladder or saddle anesthesia. She received transforaminal epidural steroid injection which helped pain radiating down to the lower extremities but stiffness and the pain in the axial back remained. Intake note: Cari is a very pleasant 63-year-old female who presents the office today for evaluation management of her chronic lower back pain. 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 Midline lower back pain without radiation down either lower extremity. Rated as a 6/10, constant and worse in the morning and at night. Pain is exacerbated by movement, activity, standing, twisting Improved with heat, cold and topical medications. Attempted physical therapy approximately 6 months ago, only completed 2 sessions and then was lost to follow-up. She would like to return to physical therapy Has been going to chiropractor off and on for many years without improvement of her pain. Was then diagnosed with osteoporosis so was told to stop going to chiropractor. Previous attempts at injections through [facility] and [facility]. Last 1 was several years ago. Patient has taken Tylenol and Motrin with minimal improvement of her pain. Previously prescribed topical compounding medication with lidocaine, gabapentin that did provide her some relief. This has run out and she does not have any refills. Has used a TENs unit of physical therapy in the past with good results. Denies red flag symptoms including new loss of bowel, bladder or saddle anesthesia In terms of muscle damage condition is described as dull, tiring, piercing, tight, squeezing Denies use of anticoagulants. Denies implantable devices, pacemaker defibrillator Denies nicotine, tobacco use. Denies illicit substance use. Endorses rare EtOH use. [facility] Medical History (Updated 02/20/25 @ 16:15 by Celestine Johnson MD) Osteoporosis Surgical History Hx of hernia repair Family History Father Pulmonary fibrosis Mother Heart disease Social History Alcohol intake: current Alcohol intake frequency: does not drink Patient Tobacco Use Status: Never used Tobacco Review of Systems Const All systems reviewed & are unremarkable except as noted in HPI and below Physical Exam Vital Signs: Last Vital Signs Pulse 62 04/26/25 09:02 Resp 18 04/26/25 09:02 BP 128/79 04/26/25 09:02 Pulse Ox 99 04/26/25 09:02 General: awake, alert, oriented. Answers questions appropriately. Fully engaged in examination. Skin: warm, dry, intact HEENT: Normocephalic. Hearing intact. Cardiac: External chest normal in appearance. Respiratory: No cough, audible wheezing or stridor. Abdomen: without gross distension. MS: No obvious swelling or deformities. Able to transition from sit to stand unassisted. Ambulates with bilaterally normal heel strike and toe off Neurological: Oriented to person, place, time and situation. Thought process intact. No gait abnormalities appreciated. Psychiatric: Appropriate mood and affect. Good judgment and insight. Assessment & Plan Assessment & Plan (1) Myofascial low back pain: Code(s): M54.50 - Low back pain, unspecified Category: Medical (2) Degenerative disc disease, cervical: Code(s): M50.30 - Other cervical disc degeneration, unspecified cervical region Category: Medical (3) Lumbar spondylosis: Code(s): M47.816 - Spondylosis without myelopathy or radiculopathy, lumbar region Category: Medical (4) Spinal stenosis: Code(s): M48.00 - Spinal stenosis, site unspecified Category: Medical Plan I will schedule this patient for L3, L4, dorsal ramus L5 medial branch radiofrequency ablation bilateral. I also offered the patient sprint PNS however due to her work obligations she can not afford to go for this procedure. She had diagnostic medial branch block in the above-mentioned anatomical locations with 100% pain improvement for the 1st few days after the procedure. Before that patient had 3 weeks status post bilateral therapeutic L3-L4 transforaminal epidural steroid injection. This injections helped to reduce her pain radiating down to the lower extremities by 80%, however pain in the axial back and axial back stiffness remained. We also agreed that I will prescribe her minimal doses of baclofen to help her pain. Previously she was prescribed methocarbamol however she reported cloudiness and forgetfulness on this medication. She may take 2 doses of the baclofen at night and only 1 or half a pill during the daytime if this is too sedating for her. Medications: New baclofen 10 mg PO TID 90 tabs 8RF 30 days Discontinued methocarbamol No driving while taking this medication. Do no take with alcohol or other SIGNAL PERSON Depressants Discontinued Reason: Doctor's Order 500 mg PO TID PRN 90 tabs 1RF muscle spasm Patient Instructions: I here by testify that I spent 32 minutes in conversation with this patient as well as planning her care and organizing this note. Coding Level of Care Code Est Pt Level 4 (38714) Diagnoses Myofascial low back pain M54.50 Degenerative disc disease, cervical M50.30 Lumbar spondylosis M47.816 Spinal stenosis M48.00
--- OUTSIDE RECORDS SUMMARY | 2025-04-26 09:44 | XMS_ITS ---
Author Name [facility] Organization Unknown History of Medication Use Medication Directions Dispensed Refills Start Date End Date Stat us lamoTRIgine (LaMICtal) 25 mg tablet Take 25 mg by mouth. 11/06/2022 03/07/2023 active esomeprazole (NexIUM) 40 mg capsule Take 40 mg by mouth. 10/02/2022 active zoledronic acid/mannitol-water (RECLAST IV) Infuse 5 mg into a venous catheter. 02/07/2022 active Problems Problem Status Onset Date Problem Type Date of Resoluti on Source Acquired scoliosis active 2022-12-03 ProblemAct [facility] Uterine leiomyoma active 2022-12-03 ProblemAct [facility] Compression fracture of T8 vertebra active 2022-12-03 ProblemAct [facility] Anxiety disorder active 2022-12-03 ProblemAct [facility] Osteoporosis active 2022-12-03 ProblemAct [facility] Hypercholesterolemia active 2022-12-03 ProblemAct [facility] Encounters Encounter Type Encounter Reason Primary Diagnosis Location Date Ambulatory [facility] 12/04/2022 Ambulatory [facility] 12/04/2022 Ambulatory Age-related oste oporosis without current pathological fracture [facility] 12/03/2022 Care Team Organization Name Specialty Phone Email Start Date End Da te [facility] PCP,No Primary Care 12/04/2022 [facility] NO PCP Primary Care 12/03/202201/2023
--- OUTSIDE RECORDS SUMMARY | 2025-04-26 09:44 | XMS_ITS | Clinical Summary ---
Author Organization [facility] Address [address] [place] [address] Care Team Providers Care Tub Washer Name Role Phone Unavailable Primary Care Provider [...]
--- OUTSIDE RECORDS SUMMARY | 2025-04-26 09:44 | XMS_ITS | Clinical Summary ---
Author Organization [facility] Address [facility] [place] [address] Care Team Providers Care Facilities Maintenance Manager Name Role Phone Pcp, No MD Primary [...] 2024 07/14/2021, 09/25/2020, 08/28/2020 Influenza Vaccine (#1) 2025 0, 08/11/2011, 08/26/2010 DTaP,Tdap,and Td Vaccines (2 [...] ANTHEM - OUT OF STATE Care Teams Facilities Maintenance Manager Relationship Specialty Start Date End Date Rylie Quinteros MD [address] [place] [address] PCP - General Internal Medicine 02/23/22
--- OUTSIDE RECORDS SUMMARY | 2025-04-26 09:44 | XMS_ITS | Clinical Summary ---
Author Organization [facility] Address [address] [place] [phone] Phone Care Team Providers Care Flat Hammerer Name Role Phone Jerri Andrews NP Primary Care Provider + Allergies No known active allergies Medications No known medications Active Problems No known active problems Social History Tobacco Use Types Packs/Day Years Used Date Smoking Tobacco: Never Assessed Education Answer Date Recorded Are you interested in more education? Not on jeannine e 12/25/2022 Are you concerned about learning? Not on file 12/25/2022 No 12/25/2022 No 12/25/2022 Digital Access Answer Date Recorded No 01/25/2023 No 01/25/2023 Reliable internet access at home? Not on file 01/25/2023 Device with a working camera? Not on file Comments Unknown Sex and Gender Information Value Date Recorded Sex Assigned at Not on file Legal Sex Female 4:41 PM EST Gender Identity Not on file Sexual Orientation Not on file Last Filed Vital Signs Vital Sign Reading Time Taken Comments Blood Pressure 120/70 01/11/2022 12:54 PM EDT Pulse 67 01/11/2022 12:54 PM EDT Temperature 36.7 C (98.1 F) 01/11/2022 12:54 PM EDT Respiratory Rate 16 01/11/2022 12:54 PM EDT Oxygen Saturation 96% 01/11/2022 12:54 PM EDT Inhaled Oxygen Concentration - - Weight - - Height 160 cm (5' 3 ) 01/12/2022 3:31 PM EDT Body Mass Index - - Plan of Treatment Health Maintenance Due Date Last Done Comments LIPID PANEL 1958 DEPRESSION SCREENING 1970 SMOKING Hx and SMOKELESS TOBACCO SCREENING 1971 HEPATITIS C SCREENING 1976 MAMMOGRAM 1998 COLOGUARD 2003 COLONOSCOPY 2003 COLORECTAL CANCER SCREENING 2003 FIT TEST 2003 FOBT 2003 SIGMOIDOSCOPY 2003 VIRTUAL COLONOSCOPY 2003 PNEUMOCOCCAL VACCINES (50+ years) (1 of 1 - PCV) 2008 ZOSTER VACCINES (1 of 2) 2008 OSTEOPOROSIS SCREENING INITI AL (ONE-TIME) 2023 COVID-19 VACCINE (4 - 2023-2 5 season) 2024 07/14/2021, 09/25/2020, 08/28/2020 Adult Td,Tdap Booster 01/04/2029 01/04/2019 RSV VACCINE (1 - 1-dose 75+ series) 2033 HEPATITIS A VACCINES Aged Out No long er eligible based on patient's age to complete this topic HIB VACCINES Aged Out No longer eligi ble based on patient's age to complete this topic MENINGOCOCCAL VACCINES (ACWY) Aged Out No longer eligible based on patient's age to complete this topic MENINGOCOCCAL VACCINES (B) Aged Out N o longer eligible based on patient's age to complete this topic Medical Devices Not on file Insurance [facility] Care Teams Flat Hammerer Relationship Specialty Start Date End Date Jerri Andrews NP [address] [place] [id number] PCP - General Nurse Practitioner 01/11/22 Additional Source Comments The information contained in this document represents components of the legal health record. It is not the complete legal health record.[facility]
--- OUTSIDE RECORDS SUMMARY | 2025-04-26 09:44 | XMS_ITS | Patient Health Record ---
Author Organization [facility] Address [address] [place] [address] Reason For Referral No Information Plan Of Treatment No Information
== END 2025-04-26 09:34 | disposition home or self-care (01) ==
PROVIDERS: PCP Nurse Practitioner Adult Health; Visit Provider Anesthesiology
DX: M54.50 Low back pain, unspecified (principal); M50.30 Other cervical disc degeneration, unspecified cervical region; M47.816 Spondylosis without myelopathy or radiculopathy, lumbar region; M48.00 Spinal stenosis, site unspecified
CPT/HCPCS: 99214

== ENCOUNTER → 2025-05-17 08:21 | Outpatient (BNVA) | payer OTHER, SELFPAY | PROVIDERS: Visit Provider Emergency Medicine | DX: Z13.89 Encounter for screening for other disorder (principal) | CPT/HCPCS: 99202 ==

== ENCOUNTER 2025-05-18 08:26 | Day surgery (SDC) | payer OTHER, SELFPAY ==
--- OUTSIDE RECORDS SUMMARY | 2025-05-15 17:37 | XMS_ITS | Clinical Summary ---
Author Organization [facility] Address [address] [place] [address] Care Team Providers Care Rock Splitter Name Role Phone Unavailable Primary Care Provider Unavailabl e Social History Tobacco Use Types Packs/Day Years Used Date Smoking Tobacco: Never Assessed Comments Unknown Sex and Gender Information Value Date Recorded Sex Assigned at Not on file Legal Sex Female 3:10 PM EDT Gender Identity Not on file Sexual Orientation Not on file Plan of Treatment Health Maintenance Due Date Last Done Comments Advance Care Planning 1960 Hepatitis C Virus Screening 1960 DTaP/Tdap/Td Vaccines (1 - Tdap) 1977 Pneumococcal Vaccines 50+ (1 of 1 - PCV) 2008 Zoster (Shingles) Vaccine (1 of 2) 2008 COVID-19 Vaccine ( - 2023-2 5 season) 2025 RSV Vaccine 60 years and old er and Patients (1 - 1-dose 75+ series) 2033 Hepatitis B Vaccines Aged Out No long er eligible based on patient's age to complete this topic
--- OUTSIDE RECORDS SUMMARY | 2025-05-15 17:37 | XMS_ITS | Clinical Summary ---
Author Organization [facility] Address [address] [place] [phone] Phone Care Team Providers Care Bottle Inspector Name Role Phone Jerri Andrews NP Primary [...] VACCINES (1 of 2) 2008 OSTEOPOROSIS SCREENING INITIAL (ONE-TIME) 2023 COVID-19 VACCINE (2023- season) 2024 07/14/2021, 09/25/2020, 08/28/2020 INFLUENZA VACCINE (#1) 2025 , 06/13/2020, 05/31/2017, Additional history exists Adult Td,Tdap Booster 01/04/2029 01/04/2019 RSV VACCINE [...] topic Medical Devices Not on file Insurance PPO [facility] Care Teams Bottle Inspector Relationship Specialty Start Date End Date Jerri Andrews NP [address] [place] [id number] PCP - General Nurse Practitioner 01/11/22 Additional Source Comments The information contained in this document represents components of the legal health record. It is not the complete legal health record.[facility]
--- OUTSIDE RECORDS SUMMARY | 2025-05-15 17:37 | XMS_ITS | Patient Health Record ---
Author Organization [facility] [address] Address [address] [place] [address] Reason For Referral No Information Plan Of Treatment No Information
--- OUTSIDE RECORDS SUMMARY | 2025-05-15 17:37 | XMS_ITS | Clinical Summary ---
Author Organization [facility] Address [facility] [place] [address] Care Team Providers Care Gravure Press Operator Name Role Phone Pcp, No MD Primary [...] of 2) 2008 COVID-19 Vaccine (4 - 2024-2 6 season) 2025 07/14/2021, 09/25/2020, 08/28/2020 Influenza Vaccine (#1) 2025 [...] ANTHEM - OUT OF STATE Care Teams Gravure Press Operator Relationship Specialty Start Date End Date Rylie Quinteros MD [address] [place] [address] PCP - General Internal Medicine 02/23/22
[2025-05-16 12:29] VITALS: BMI 26.4
--- NOTE | 2025-05-16 13:06 | HO.ANESPROP2 ---
HPI - Anesthesia Eval Consult details Narrative: 64yo F for Bilateral L3,L4,DR L5 Medial Branch Radiofrequency AB [facility] Active Problems Active Problems: All Active Problems (Updated 05/16/25 @ 12:37 by Michelle Jordan, NITHIN) Spondylosis of lumbar region without myelopathy or radiculopathy (Acute) Radiculopathy of lumbar region (Acute) Spinal stenosis (Acute) Cervicalgia (Acute) Lower back pain (Acute) Myofascial low back pain (Acute) Degenerative disc disease, cervical (Acute) Lumbar spondylosis (Acute) Osteoporosis (Acute) Past Medical History Medical History (Updated 05/16/25 @ 12:37 by Michelle Jordan RN) Seasonal asthma Numbness and tingling of right leg Seasonal allergies GERD (gastroesophageal reflux disease) Osteoporosis Family History Family History Father Pulmonary fibrosis Mother Heart disease Surgical History Surgical History (Updated 05/16/25 @ 12:29 by Michelle Jordan RN) History of radiofrequency ablation (RFA) of nerve of lumbar spine (~2019) Hx of hernia repair Social History Social History Alcohol intake: current Alcohol intake frequency: holidays/special occasions only Patient Tobacco Use Status: Never used Tobacco Meds Allergies Allergy/AdvReac Type Severity Reaction Status Date / Time No Known Allergies Allergy Verified 04/26/25 09:01 Home Medications ?Medication ?Instructions ?Recorded ?Confirmed ?Last Taken ?Type cholecalciferol (vitamin D3) 25 50 mcg PO DAILY 09/12/24 05/16/25 Unknown History mcg (1,000 unit) capsule multivitamin 1 tab PO DAILY 09/12/24 05/16/25 Unknown History Flovent HFA 05/16/25 05/16/25 Unknown History albuterol sulfate 90 mcg/actuation 1 puff inhalation QID PRN wheezing 05/16/25 05/16/25 Unknown History aerosol inhaler baclofen 10 mg tablet 10 mg PO TID PRN Muscle Pain 05/16/25 05/16/25 Unknown History fluticasone propionate 50 1 spray intranasal BID 05/16/25 05/16/25 Unknown History mcg/actuation nasal spray,suspension omeprazole 20 mg capsule,delayed 20 mg PO QAM 05/16/25 05/16/25 05/18/25 History release Exam Height,Weight and Vital Signs: Height 5 ft 3 in Weight 67.585 kg Assessment and Plan Assessment Anesthesia Assessment: Chart Reviewed
--- NOTE | ~2025-05-18 | FL_ITS ---
EXAMINATION: FL GUIDANCE ONLY HISTORY: L3 L4 DR L5 RFA bilateral COMPARISON: None available. TECHNIQUE: Fluoroscopy time: 1 minute, 16.2 seconds. Cumulative Dose: 19.497 mGy. DAP: 6.4274 mGym2 Images: 4. FINDINGS: Fluoroscopic spot films of the lumbar spine demonstrate needles in the regions of the bilateral L3-4, L4-5, and L5-S1 facet joints. FL/FL guidance in OR IMPRESSION: Fluoroscopy during procedure. Please see procedure report for additional information. Electronically signed by: Thang Jensen MD 05/18/2025 10:46 AM EDT
[2025-05-18 08:46] VITALS: BP 106/64; PULSE 76; RESP 16; TEMP 36.6; O2SAT 94
[2025-05-18] MEDS: Lactated Ringers 1,000 ML 100 ML IVCONT (08:52)
--- NOTE | 2025-05-18 08:55 | MHC.SHP ---
Pre-Procedural Eval Section A - 24 Hr Update-Section A only Date of Service: 05/18/25 The patient is an INPATIENT: No Changes since office visit: Yes Patient answered all questions The patient has been examined within 24 hours of the surgical procedure. The History & Physical has been completed within 30 days and I have reviewed it.: No Section B - Complete if H&P > 30 days Chief Complaint: Spondylosis w/o myelopathy or radiculopathy,pain Details of Present Illness: as above Relevant Family History (Specify if Yes): No Relevant Social History: None Present Medications: see Short Stay Collaborative assessment Medical History: No relevant PMH History of Previous Operations: No relevant previous surgery Allergies: Allergies Allergy/AdvReac Type Severity Reaction Status Date / Time No Known Allergies Allergy Verified 04/26/25 09:01 Review of Systems Sugical H&P ROS: Negative: Constitution, Cardiovascular, Respiratory, Neurological, Psychiatric, Hem-Onc, Allergic/Immunologic, Gastrointestinal, Genitourinary, Integumentary, Endocrine and Eyes/Ears/Nose/Throat and Yes, Specify: Musculoskeletal (as above plus DDD, as well as cervicalgia ) Exam Surgical H&P Exam: Normal: HEENT, Normal: Heart, Normal: Lungs, Normal: Extremities, Normal: Abdomen, Normal: Skin and Normal: Neurological Plan Diagnosis/Plan: Unchanged I have reviewed the history and physical and performed a pertinent physical examination on my patient. No changes have occurred unless specified. Time Spent With Patient Time: Total time managing care of this patient today ____ minutes.
--- NOTE | 2025-05-18 09:22 | P.CONAN_ITS ---
FORMERLY [facility] Active Problems Active Problems: All Active Problems Spondylosis of lumbar region without myelopathy or radiculopathy (Acute) Radiculopathy of lumbar region (Acute) Spinal stenosis (Acute) Cervicalgia (Acute) Lower back pain (Acute) Myofascial low back pain (Acute) Degenerative disc disease, cervical (Acute) Lumbar spondylosis (Acute) Osteoporosis (Acute) Past Medical History Medical History (Updated 05/16/25 @ 12:37 by Michelle Jordan RN) Seasonal asthma Numbness and tingling of right leg Seasonal allergies GERD (gastroesophageal reflux disease) Osteoporosis Family History Family History Father Pulmonary fibrosis Mother Heart disease Family history of problems with anesthesia: No Surgical History Surgical History (Updated 05/16/25 @ 12:29 by Michelle Jordan RN) History of radiofrequency ablation (RFA) of nerve of lumbar spine (~2019) Hx of hernia repair History of Problems with Anesthesia: No Social History Social History Alcohol intake: current Alcohol intake frequency: holidays/special occasions only Patient Tobacco Use Status: Never used Tobacco Use of substances other than those prescribed or required for medical reasons: No Are you DNR?: No Advance Directives: No (will bring dos) Advance Directives Information Provided: Yes Advance Directives on File: No Poor oral hygiene: No Meds Allergies Allergy/AdvReac Type Severity Reaction Status Date / Time No Known Allergies Allergy Verified 04/26/25 09:01 Active Medications: Current Medications Lactated Ringer's (Lr) 1,000 mls @ 100 mls/hr IVCONT .Q10H WILFRIDO Last Admin: 05/18/25 08:52 Dose: 100 mls/hr Naloxone HCl (Naloxone Hcl 0.4 Mg/Ml Vial) 0.04 mg IVPUSH Q5M PRN PRN Reason: Excessive sedation or RR < 8 Home Medications ?Medication ?Instructions ?Recorded ?Confirmed ?Last Taken ?Type cholecalciferol (vitamin D3) 25 50 mcg PO DAILY 05/16/25 Unknown History mcg (1,000 unit) capsule multivitamin 1 tab PO DAILY 09/12/2404/30 Unknown History Flovent HFA 05/16/25 05/16/25 Unknown H istory albuterol sulfate 90 mcg/actuation 1 puff inhalation Q ID PRN wheezing 05/16/25 05/16/25 Unknown History aerosol inhaler baclofen 10 mg tablet 10 mg PO TID PRN Muscle Pain 05/16/25 05/16/25 Unknown History fluticasone propionate 50 1 spray intranasal BID 05/1605/16/25 Unknown History mcg/actuation nasal spray,suspension omeprazole 20 mg capsule,delayed 20 mg PO QAM 05/16/25 05/16/25 05/18/25 History release Exam Height,Weight and Vital Signs: Height 5 ft 3 in Weight 67.585 kg Last Vital Signs Temp 97.9 F 05/18/25 08:46 Pulse 76 05/18/25 08:46 Resp 16 05/18/25 08:46 BP 106/64 05/18/25 08:46 Pulse Ox 94 05/18/25 08:46 O2 Del Method Room Air 05/18/25 08:46 Airway Mallampati Class: II TM Dist: >3cm Neck ROM: Full Heart: rrr Lungs: cta Assessment and Plan Assessment Anesthesia Assessment: Anesthesia Plan Discussed and Chart Reviewed Final Anesthetic Review Family History of Problems with Anesthesia: No History of Problems with Anesthesia: No NPO: Yes ASA Class: II Final Preanesthetic Review: No Changes in Pt Med Stat, Meds/Allgs Chart Reviewed and Consent Obtained/Reviewed Patient Risk: Low Procedure Risk: Low Anesthetic Plan Anesthetic Plan: MAC: Disposition: Standard PACU
[2025-05-18 10:33] VITALS: BP 119/64; PULSE 70; RESP 12; TEMP 36.1; O2SAT 97
--- NOTE | 2025-05-18 10:46 | P.OP_ITS ---
Operative Note Operative Note Date of Service: 05/18/25 Narrative: Radiofrequency ablation bilateral L3- L4- DRL5 medial branches. Informed consent was explained to the patient. All questions were explained and answered.? The patient was taken inside of the operating room where she was positioned prone on the operating table.? Time-out was performed delineating patient's name and date of , correct site, side, the nature of the procedure, patient's allergy, preoperative antibiotic if needed.? All operating room staff was participating in OR time-out procedure.? [employer] monitors were applied.? Patient was minimally sedated and I was able to maintain the verbal contact with the patient throughout the procedure. Her lower back was prepped with ChloraPrep and draped with sterile towels.? C- arm was brought over the operating field and sq picture of L4-5 vertebra as and S1 vertebra were delineated on the screen. Severe scoliosis and rotational spondyloarthritis and scoliosis were noted on the screen. Extreme positioned of the C-arms were required to delineate proper targets. Points of interest were delineated as connection of superior articular process of L4 and L5 vertebra bilaterally with corresponding transverse processes as well as connection of the sacral alae bilaterally with superior articular process of S1.? The projection of the point of interest to the skin were injected with the small amount of local anesthetic lidocaine 2% 1-1.5 cc.? And after that 18 gauge 100 mm radiofrequency cannulas were driven to the point of interest in tunnel vision fashion under oblique view After needles gently contacted the bone at the point of interests the stylets were removed from the needles and electrodes were inserted into the needles.? Electrodes were connected to the radiofrequency machine and testing was performed for the patient's motor function.? There were no pathological motor response indicating stimulation of somatic nerves.? After that electrodes were removed and each needle was injected with small amount of ropivacaine 0.5% 1-1.5 cc mixed with trace amount of Kenalog.? Upon completion of the injections the electrodes were reinserted and energy of 89 degree centigrade for 90 seconds was applied to each needle 1st on the right side and then on the leftt.? Upon completion of the energy application the needles were rotated 180? and energy applied with the same temperature and with the same time.?Upon completion of the injections needles were removed and sterile dressings were applied patient was taken outside of the operating room to recovery room.
[2025-05-18 10:48] VITALS: BP 144/65; PULSE 64; RESP 16; TEMP 36.5; O2SAT 98
--- NOTE | 2025-05-18 10:48 | PM.OP ---
Brief Operative Note Date of Service: 05/18/25 Pre-op diagnosis: Spondylosis lumbar without myelopathy or radiculopathy Post-op diagnosis: same Procedure: Radiofrequency ablation of medial branches L3, L4, L5 bilateral. Surgeon: Celestine Johnson MD Anesthesia: MAC Was an Specification Manager used for this Procedure?: No Estimated blood loss (mL): 2 Condition: stable Disposition: PACU
== END 2025-05-18 11:42 | disposition home or self-care (01) ==
PROVIDERS: Visit Provider Anesthesiology
PROC: (CPT 64635; principal; 2025-05-18 10:10)
DX: M47.816 Spondylosis without myelopathy or radiculopathy, lumbar region (principal); M54.50 Low back pain, unspecified; R20.0 Anesthesia of skin; R20.2 Paresthesia of skin; M48.00 Spinal stenosis, site unspecified; M50.30 Other cervical disc degeneration, unspecified cervical region; M81.0 Age-related osteoporosis without current pathological fracture; J45.998 Other asthma; K21.9 Gastro-esophageal reflux disease without esophagitis; Z79.1 Long term (current) use of non-steroidal anti-inflammatories (NSAID); Z79.51 Long term (current) use of inhaled steroids; Z79.899 Other long term (current) drug therapy; Z98.890 Other specified postprocedural states
CPT/HCPCS: 64635; 64636 ×2; J2003; J2250; J2795; J3010; J3301

== ENCOUNTER → 2025-05-18 08:26 | Outpatient (BNV) | payer OTHER, SELFPAY | PROVIDERS: Visit Provider Anesthesiology | DX: M47.816 Spondylosis without myelopathy or radiculopathy, lumbar region (principal) | CPT/HCPCS: 64635; 64636 ==

== ENCOUNTER → 2025-06-12 08:16 | Outpatient (BNVA) | payer OTHER, SELFPAY | PROVIDERS: Visit Provider Emergency Medicine | DX: Z13.89 Encounter for screening for other disorder (principal) | CPT/HCPCS: 73130; 99214 ==

== ENCOUNTER 2025-07-06 10:51 | Outpatient (AMB) | payer OTHER, SELFPAY ==
[2025-07-06 11:16] VITALS: BP 132/87; PULSE 75; RESP 16; O2SAT 97; BMI 27.6
--- NOTE | 2025-07-06 11:16 | MHC.OFFVIS ---
Vital Signs 07/06/25 11:16 Height 5 ft 3 in Weight 156 lb BMI 27.6 BP 132/87 Blood Pressure Location Rt brachial Position Sitting Respiration 16 Pulse 75 Pulse Source Pulse Oximeter Pulse Oximetry (%) 97 Oxygen Delivery Method Room Air Intake Visit Reasons: S/p B/l L3-L4-DR L5 MB RFA 05/18/25 Wire Border Assembler Required: No Accompanied by: Self / Same As Patient Allergies No Known Allergies Allergy (Verified 07/06/25 11:17) HPI Comments Details: The patient is a 64-year-old female presenting with chronic pain management. She underwent a radiofrequency ablation procedure, which resulted in significant improvement, allowing her to perform activities such as climbing stairs with less discomfort. The patient reports a 70% improvement in pain symptoms post-procedure. The patient has a history of lumbar spinal stenosis at the L3-4 level, for which she previously received a steroid injection that provided relief. She is advised to continue with stretching and exercise to maintain mobility and manage symptoms. The patient inquired about the use of Celebrex and Cymbalta for pain management. - Pain improved by 70% post-radiofrequency ablation. - Pain previously exacerbated by activities such as climbing stairs, now less severe. - Tightness across the back during exercise, but less intense than before. - Affect: Patient reports improved mood due to reduced pain levels. - Analgesia: Radiofrequency ablation provided 70% pain relief; will trial Cymbalta recommended for chronic pain. - Activities of Daily Living: Improved ability to perform activities such as climbing stairs. PFS Medical History (Updated 06/12/25 @ 08:48 by Horace Priest DO) Seasonal asthma Numbness and tingling of right leg Seasonal allergies GERD (gastroesophageal reflux disease) Osteoporosis Surgical History (Updated 05/16/25 @ 12:29 by Michelle Jordan RN) History of radiofrequency ablation (RFA) of nerve of lumbar spine (~2019) Hx of hernia repair Family History Father Pulmonary fibrosis Mother Heart disease Social History Alcohol intake: current Alcohol intake frequency: holidays/special occasions only Patient Tobacco Use Status: Never used Tobacco Review of Systems Narrative - Musculoskeletal: Reports tightness across the back during exercise, improved post-ablation. Physical Exam Vital Signs: Last Vital Signs Pulse 75 07/06/25 11:16 Resp 16 07/06/25 11:16 BP 132/87 07/06/25 11:16 Pulse Ox 97 07/06/25 11:16 Oxygen Delivery Method Room Air 07/06/25 11:16 BMI result Body Mass Index 27.6 General: awake, alert, oriented. Answers questions appropriately. Fully engaged in examination. Skin: warm, dry, intact HEENT: Normocephalic. Hearing intact. Cardiac: External chest normal in appearance. Respiratory: No cough, audible wheezing or stridor. Abdomen: without gross distension. MS: No obvious swelling or deformities. Able to transition from sit to stand unassisted. Ambulates with bilaterally normal heel strike and toe off Neurological: Oriented to person, place, time and situation. Thought process intact. No gait abnormalities appreciated. Psychiatric: Appropriate mood and affect. Good judgment and insight. Results Reviewed Results Reviewed: 05/2024 MR/MR lumbar spine wo con FINDINGS: Left rib bearing vertebra labeled T12. Levoconvex rotoscoliosis apex at L2. Multilevel marginal osteophyte formation and disc desiccation. Bone marrow STIR signal in the endplates of T12-L1. Grade 1 anterolisthesis, L5-S1. Grade 1 retrolisthesis, T12-L1. Conus medullaris ends at inferior endplate of T12 with normal signal. T11-12: No compression upon neural elements. T12-L1: No central spinal canal stenosis. Bilateral neuroforamina narrowing secondary to scoliosis. L1-2: No central spinal canal stenosis. Bilateral neuroforamina narrowing secondary to scoliosis. L2-3: No central spinal canal stenosis. Bilateral neuroforamina narrowing secondary to scoliosis. L3-4: Broad-based disc bulging. Facet joint and ligamentum flavum hypertrophy. Reduced AP diameter of the central spinal canal. Bilateral neuroforamina narrowing secondary to scoliosis and degenerative changes. L4-5: Broad-based disc bulging. Facet joint and ligamentum flavum hypertrophy. Reduced AP diameter of the central spinal canal. Bilateral neuroforamina narrowing on a degenerative basis and scoliosis. L5-S1: No central spinal canal stenosis. Bilateral neuroforamina narrowing on a degenerative basis. Fatty atrophy of the lumbar muscles likely related to denervation. No prevertebral compartment hematoma, mass or fluid collection. IMPRESSION: Multilevel thoracolumbar spondylosis in the dextroconvex rotoscoliosis resulting in multilevel neural foramina narrowing and central spinal canal stenosis at L3-4. 05/04/24 XR/XR lumbar spine 4V min FINDINGS: Significant left apical lumbar scoliosis limiting evaluation of fractures by radiograph. No discrete severe compression deformity. No significant rbianne or retrolisthesis. Grade 1 retrolisthesis of L2 on L3, possibly degenerative in nature. Severe multilevel intervertebral disc height loss and facet arthropathy leading to various degrees of neural foraminal osseous encroachment. No significant paraspinal soft tissue abnormality. IMPRESSION: 1. Significant left apical lumbar scoliosis limiting evaluation of fractures. 2. Grade 1 retrolisthesis of L2 on L3, possibly degenerative in nature. 3. Severe lumbar spondylosis. In view of the degree of severe scoliosis, limiting the evaluation of the spine by radiograph, further evaluation with CT R MRI lumbar spine without IV contrast is recommended as clinically warranted. Assessment & Plan Assessment & Plan (1) Myofascial low back pain: Code(s): M54.50 - Low back pain, unspecified Category: Medical (2) Degenerative disc disease, cervical: Code(s): M50.30 - Other cervical disc degeneration, unspecified cervical region Category: Medical (3) Lumbar spondylosis: Code(s): M47.816 - Spondylosis without myelopathy or radiculopathy, lumbar region Category: Medical (4) Spinal stenosis: Code(s): M48.00 - Spinal stenosis, site unspecified Category: Medical Plan The plan includes monitoring the patient's response to the radiofrequency ablation and considering a repeat L3-4 epidural steroid injection if symptoms of lumbar spinal stenosis recur. The patient is advised to continue with stretching and exercise to maintain mobility and manage symptoms effectively. For medication management, the patient is advised to trial Cymbalta as a preferable option for chronic pain management. Refill sent on topical pain cream to compounding pharmacy per patient request. Patient was informed and verbally consented to the use of an ambient scribe for clinic note documentation during this visit. Medications: New duloxetine 20 mg PO BID 60 caps 3RF Refilled cream base no.105 (bulk) (Base W301 cream) SIG: apply pea-sized amount 3-5 times daily to painful areas as needed; Diclofenac 5%, Baclofen 5%, Cyclobenzaprine 2%, Gabapentin 6%, Bupivacaine 2%; topically ; 240 grams 1RF Patient Instructions: - Continue with stretching and exercise to maintain mobility. - Use Celebrex only if necessary for pain relief. - Start Cymbalta for chronic pain management. - Contact the clinic if symptoms of lumbar spinal stenosis return to schedule repeat FLORA. Coding Level of Care Code Est Pt Level 3 (28916) Complex EM visit Add On G2211 Diagnoses Myofascial low back pain M54.50 Degenerative disc disease, cervical M50.30 Lumbar spondylosis M47.816 Spinal stenosis M48.00
--- OUTSIDE RECORDS SUMMARY | 2025-07-06 12:53 | XMS_ITS | Patient Health Record ---
Author Organization [facility] [address] Address [address] [place] [address] Reason For Referral No Information Plan Of Treatment No Information
--- OUTSIDE RECORDS SUMMARY | 2025-07-06 12:53 | XMS_ITS | Clinical Summary ---
Author Organization [facility] Address [address] [place] [id number] Phone Care Team Providers Care Cyber Defense Analyst Name Role Phone Jerri Andrews NP Primary [...] 2) 2008 OSTEOPOROSIS SCREENING INITIAL (ONE-TIME) 2023 INFLUENZA VACCINE (#1) 2025 , 06/13/2020, 05/31/2017, Additional history exists COVID-19 VACCINE ( season) 2025 07/14/2021, 09/25/2020, 08/28/2020 Adult Td,Tdap Booster 01/04/2029 [...] Not on file Insurance PPO [facility] [facility] Care Teams Cyber Defense Analyst Relationship Specialty Start Date End Date Jerri Andrews NP [address] [place] [id number] PCP - General Nurse Practitioner 01/11/22 Additional Source Comments The information contained in this document represents components of the legal health record. It is not the complete legal health record.[facility]
--- OUTSIDE RECORDS SUMMARY | 2025-07-06 12:53 | XMS_ITS | Clinical Summary ---
Author Organization [facility] Address [facility] [employer] [place] [address] Care Team Providers Care Spray Machine Operator Name Role Phone Pcp, No MD [...] ANTHEM - OUT OF STATE Care Teams Spray Machine Operator Relationship Specialty Start Date End Date Rylie Quinteros MD [address] [place] [address] PCP - General Internal Medicine 02/23/22
== END 2025-07-06 11:40 | disposition home or self-care (01) ==
PROVIDERS: Visit Provider Registered Nurse Emergency
DX: M54.50 Low back pain, unspecified (principal); M50.30 Other cervical disc degeneration, unspecified cervical region; M47.816 Spondylosis without myelopathy or radiculopathy, lumbar region; M48.00 Spinal stenosis, site unspecified
CPT/HCPCS: 99213